=== PATIENT | female | born 1935 | race Caucasian/White ===

== ENCOUNTER 2016-07-07 16:35 | Inpatient (IN) | payer MEDICARE ==
[2016-07-07] MEDS ORDERED: SODIUM CHLORIDE 0.9% 1,000 ML IV STA ×4 (16:58→18:07)
[2016-07-07 17:23] LABS: Basophils # (A) 0.1 k/uL (0-0.2); Basophils % (A) 0 %; CH 25.8; CHCM 25.3; Eosinophils # (A) 0.1 k/uL (0-0.7); Eosinophils % (A) 0 %; HCT 40.5 % (34.0-46.0); HDW 2.34; HGB 10.8 gm/dL (11.4-16.0); Hypochromasia Marked; Luc # (Auto) 0.09; Luc % (Auto) 1; Lymphocytes # (A) 1.3 k/uL (1.0-4.8); Lymphocytes % (A) 7 %; MCH 27.2 pg (25.0-35.0); MCHC 26.6 g/dL (31.0-37.0); MCV 102.4 fL (80.0-100.0); Macrocytosis Slight; Mean Platelet Volume 7.6; Monocytes # (A) 0.8 k/uL (0-1.0); Monocytes % (A) 4 %; Neutrophils # (A) 15.4 k/uL (1.3-7.7); Neutrophils % (A) 87 %; RBC 3.95 m/uL (3.80-5.40); RDW 13.9 % (11.5-15.5); WBC 17.8 k/uL (3.8-10.6); WBC (Perox) 18.49
--- NOTE | 2016-07-07 17:31 | ED ---
Nausea/Vomiting/Diarrhea HPI - General Chief complaint: Nausea/Vomiting/Diarrhea Stated complaint: Vomiting Time Seen by Provider: 07/07/16 16:35 Source: patient, family, EMS, RN notes reviewed Mode of arrival: EMS Limitations: no limitations - History of Present Illness Initial comments: This is a 81-year-old female was brought in by EMS for evaluation of weakness with nausea and vomiting. Nose has gone on for last couple days with weakness and also urinary frequency. She also have a very high blood sugar greater than 600. She denies any abdominal pain she was throwing up she was given some red material per the she did vomit red colored material after arrival in the emergency department. She denies any focal weakness is generalized weakness no headaches no diarrhea reported. MD complaint: nausea, vomiting, other - Related Data Home Medications Medication Instructions Recorded Confirmed Insulin Aspart [NovoLOG] 1 units SQ ACHS PRN 09/27/14 07/07/16 Insulin Glargine [Lantus] 12 unit SQ HS 09/27/14 07/07/16 Multivitamin/Iron/Folic Acid 1 tab PO DAILY 09/27/14 07/07/16 [Centrum Complete Multivit Tab] HYDROcodone/APAP 5-325MG [[place] 1 tab PO Q6HR PRN 07/24/15 07/07/16 5-325] Diphenox-Atrop 2.5-0.025 mg 1 tab PO QID PRN 07/07/16 07/07/16 [Lomotil] Levothyroxine Sodium [Synthroid] 150 mcg PO DAILY 07/07/16 07/07/16 Sertraline HCl [Zoloft] 25 mg PO DAILY 07/07/16 07/07/16 levETIRAcetam [Keppra] 500 mg PO BID 07/07/16 07/07/16 metFORMIN HCL [Glucophage] 500 mg PO BID 07/07/16 07/07/16 Allergies Allergy/AdvReac Type Severity Reaction Status Date / Time sulfamethoxazole Allergy Rash/Hives Verified 07/07/16 17:35 [From Bactrim] trimethoprim [From Bactrim] Allergy Rash/Hives Verified 07/07/16 17:35 Review of Systems ROS Statement: Those systems with pertinent positive or pertinent negative responses have been documented in the HPI. ROS Other: All systems not noted in ROS Statement are negative. Past Medical History Past Medical History: Cancer, Diabetes Mellitus, Osteoarthritis (OA), Renal Disease, Thyroid Disorder, Vascular Disorder Additional Past Medical History / Comment(s): 09/27/14 Pt presented to [facility] ER via EMS. Pt's woke to find the pt having loud breathing that sounded like she was snoring but at the same time she was moving her arm back and forth with a. jerking novement. He attempted to wake hr from sleep but was not able to. Whe pt stopped moving she was not responsive-she gradually regained consciousness but was still confused and unable to speak. coherently. Over the following 15-20 minutes she became able to speak clearly. Other HX: IDDM, colon cancer with surgery and chemo/radiation txs, skin cancer, 2009 2 vertebral fxs, back pain,. arthiritis, frequent diarrhea, hypothyroidism, diverticulosis. History of Any Multi-Drug Resistant Organisms: None Reported Past Surgical History: Bowel Resection, Tonsillectomy, Tubal Ligation Additional Past Surgical History / Comment(s): 1997 or 1998 low anterior rectosigmoid resection, colonoscopies, D&C Past Anesthesia/Blood Transfusion Reactions: Motion Sickness Additional Past Anesthesia/Blood Transfusion Reaction / Comment(s): Pt's believes she had a blood transfusion during colon surgery without reaction. Past Psychological History: No Psychological Hx Reported Additional Psychological History / Comment(s): Pt resides with her spouse. She is independent with her ADLs. She uses either a walker or cane with ambulating. She states she can drive. Smoking Status: Never smoker Past Alcohol Use History: None Reported Past Drug Use History: None Reported - Past Family History Father Family Medical History: Diabetes Mellitus Mother Family Medical History: CVA/TIA, Myocardial Infarction ([place]) Brother(s) Family Medical History: Cancer (Lung) Sister(s) Family Medical History: No Reported History (Hypothyroidism) General Exam - General Exam Comments Initial Comments: This a well developed well-nourished awake but somewhat lethargic female Limitations: no limitations General appearance: alert, in no apparent distress Head exam: Present: atraumatic, normocephalic, normal inspection Eye exam: Present: normal appearance, PERRL, EOMI. Absent: scleral icterus, conjunctival injection, periorbital swelling ENT exam: Present: mucous membranes dry Neck exam: Present: normal inspection. Absent: tenderness, meningismus, lymphadenopathy Respiratory exam: Present: normal lung sounds bilaterally. Absent: respiratory distress, wheezes, rales, rhonchi, stridor Cardiovascular Exam: Present: normal rhythm, tachycardia, normal heart sounds. Absent: systolic murmur, diastolic murmur, rubs, gallop, clicks GI/Abdominal exam: Present: soft, normal bowel sounds. Absent: distended, tenderness, guarding, rebound, rigid Rectal exam: Present: normal inspection, normal rectal tone. Absent: heme (-) stool Extremities exam: Present: normal inspection, full ROM, normal capillary refill. Absent: tenderness, pedal edema, joint swelling, calf tenderness Back exam: Present: normal inspection Neurological exam: Present: alert, oriented X3, CN II-XII intact Psychiatric exam: Present: normal affect, normal mood Skin exam: Present: warm, dry, intact, normal color. Absent: rash Course Vital Signs 07/07/16 07/07/16 07/07/16 16:47 16:51 17:21 Temperature 97.6 F Pulse Rate 107 H 109 H 107 H Respiratory 18 18 18 Rate Blood Pressure 117/57 109/53 115/57 O2 Sat by Pulse 97 96 99 Oximetry 07/07/16 07/07/16 17:51 18:21 Temperature Pulse Rate 104 H 104 H Respiratory 18 18 Rate Blood Pressure 109/53 122/56 O2 Sat by Pulse 100 100 Oximetry - Reevaluation(s) Reevaluation #1: 07/07/16 19:35 I did discuss the findings with the patient she will be admitted there was noted small amount of pink blood passed per vagina I did do a rectal exam which showed no evidence of any fissures hemorrhoids or blood. Medical Decision Making - Lab Data Result diagrams: 07/07/16 17:00 07/07/16 17:00 Lab Results 07/07/16 07/07/16 07/07/16 Range/Units 17:00 17:00 17:00 WBC 17.8 H (3.8-10.6) k/uL RBC 3.95 (3.80-5.40) m/uL Hgb 10.8 L (11.4-16.0) gm/dL Hct 40.5 (34.0-46.0) % MCV 102.4 H (80.0-100.0) fL MCH 27.2 (25.0-35.0) pg MCHC 26.6 L (31.0-37.0) g/dL RDW 13.9 (11.5-15.5) % Plt Count 281 (150-450) k/uL Neutrophils % 87 % Lymphocytes % 7 % Monocytes % 4 % Eosinophils % 0 % Basophils % 0 % Neutrophils # 15.4 H (1.3-7.7) k/uL Lymphocytes # 1.3 (1.0-4.8) k/uL Monocytes # 0.8 (0-1.0) k/uL Eosinophils # 0.1 (0-0.7) k/uL Basophils # 0.1 (0-0.2) k/uL Manual Slide Review Performed Toxic Granulation Present Hypochromasia Marked Poikilocytosis (manual Present Macrocytosis Slight Sodium 136 L (137-145) mmol/L Potassium 5.6 H (3.5-5.1) mmol/L Chloride 96 L (98-107) mmol/L Carbon Dioxide 6 L* (22-30) mmol/L Anion Gap 34 mmol/L BUN 21 H (7-17) mg/dL Creatinine 1.17 H (0.52-1.04) mg/dL Est GFR (MDRD) Af Amer 54 (>60 ml/min/1.73 sqM) Est GFR (MDRD) Non-Af 45 (>60 ml/min/1.73 sqM) Glucose 807 H* (74-99) mg/dL POC Glucose (mg/dL) (75-99) mg/dL POC Glu [employer] Executive ID Calcium 9.3 (8.4-10.2) mg/dL Magnesium 1.6 (1.6-2.3) mg/dL Total Bilirubin 0.7 (0.2-1.3) mg/dL AST 19 (14-36) U/L ALT 27 (9-52) U/L Alkaline Phosphatase 74 (38-126) U/L Total Creatine Kinase 66 (30-135) U/L CK-MB (CK-2) 1.8 (0.0-2.4) ng/mL CK-MB (CK-2) Rel Index 2.7 Troponin I 0.019 (0.000-0.034) ng/mL Total Protein 6.4 (6.3-8.2) g/dL Albumin 4.2 (3.5-5.0) g/dL Amylase 82 (30-110) U/L Lipase 23 (23-300) U/L Urine Color Urine Appearance (Clear) Urine pH (5.0-8.0) Ur Specific [place] (1.001-1.035) Urine Protein (Negative) Urine Glucose (UA) (Negative) Urine Ketones (Negative) Urine Blood (Negative) Urine Nitrite (Negative) Urine Bilirubin (Negative) Urine Urobilinogen (<2.0) mg/dL Ur Leukocyte Esterase (Negative) Gastric Occult Blood (Negative) Stool Occult Blood (Negative) Acetone, Qual (Negative) 07/07/16 07/07/16 07/07/16 Range/Units 17:00 17:21 17:34 WBC (3.8-10.6) k/uL RBC (3.80-5.40) m/uL Hgb (11.4-16.0) gm/dL Hct (34.0-46.0) % MCV (80.0-100.0) fL MCH (25.0-35.0) pg MCHC (31.0-37.0) g/dL RDW (11.5-15.5) % Plt Count (150-450) k/uL Neutrophils % % Lymphocytes % % Monocytes % % Eosinophils % % Basophils % % Neutrophils # (1.3-7.7) k/uL Lymphocytes # (1.0-4.8) k/uL Monocytes # (0-1.0) k/uL Eosinophils # (0-0.7) k/uL Basophils # (0-0.2) k/uL Manual Slide Review Toxic Granulation Hypochromasia Poikilocytosis (manual Macrocytosis Sodium (137-145) mmol/L Potassium (3.5-5.1) mmol/L Chloride (98-107) mmol/L Carbon Dioxide (22-30) mmol/L Anion Gap mmol/L BUN (7-17) mg/dL Creatinine (0.52-1.04) mg/dL Est GFR (MDRD) Af Amer (>60 ml/min/1.73 sqM) Est GFR (MDRD) Non-Af (>60 ml/min/1.73 sqM) Glucose (74-99) mg/dL POC Glucose (mg/dL) (75-99) mg/dL POC Glu [employer] Executive ID Calcium (8.4-10.2) mg/dL Magnesium (1.6-2.3) mg/dL Total Bilirubin (0.2-1.3) mg/dL AST (14-36) U/L ALT (9-52) U/L Alkaline Phosphatase (38-126) U/L Total Creatine Kinase (30-135) U/L CK-MB (CK-2) (0.0-2.4) ng/mL CK-MB (CK-2) Rel Index Troponin I (0.000-0.034) ng/mL Total Protein (6.3-8.2) g/dL Albumin (3.5-5.0) g/dL Amylase (30-110) U/L Lipase (23-300) U/L Urine Color Light Yellow Urine Appearance Clear (Clear) Urine pH 5.0 (5.0-8.0) Ur Specific [place] 1.011 (1.001-1.035) Urine Protein Trace H (Negative) Urine Glucose (UA) 4+ H (Negative) Urine Ketones 4+ H (Negative) Urine Blood Negative (Negative) Urine Nitrite Negative (Negative) Urine Bilirubin Negative (Negative) Urine Urobilinogen <2.0 (<2.0) mg/dL Ur Leukocyte Esterase Negative (Negative) Gastric Occult Blood Positive (Negative) Stool Occult Blood (Negative) Acetone, Qual Positive (Negative) 07/07/16 07/07/16 Range/Units 17:34 19:25 WBC (3.8-10.6) k/uL RBC (3.80-5.40) m/uL Hgb (11.4-16.0) gm/dL Hct (34.0-46.0) % MCV (80.0-100.0) fL MCH (25.0-35.0) pg MCHC (31.0-37.0) g/dL RDW (11.5-15.5) % Plt Count (150-450) k/uL Neutrophils % % Lymphocytes % % Monocytes % % Eosinophils % % Basophils % % Neutrophils # (1.3-7.7) k/uL Lymphocytes # (1.0-4.8) k/uL Monocytes # (0-1.0) k/uL Eosinophils # (0-0.7) k/uL Basophils # (0-0.2) k/uL Manual Slide Review Toxic Granulation Hypochromasia Poikilocytosis (manual Macrocytosis Sodium (137-145) mmol/L Potassium (3.5-5.1) mmol/L Chloride (98-107) mmol/L Carbon Dioxide (22-30) mmol/L Anion Gap mmol/L BUN (7-17) mg/dL Creatinine (0.52-1.04) mg/dL Est GFR (MDRD) Af Amer (>60 ml/min/1.73 sqM) Est GFR (MDRD) Non-Af (>60 ml/min/1.73 sqM) Glucose (74-99) mg/dL POC Glucose (mg/dL) >600 H (75-99) mg/dL POC Glu [employer] Executive ID Wandy Perez Calcium (8.4-10.2) mg/dL Magnesium (1.6-2.3) mg/dL Total Bilirubin (0.2-1.3) mg/dL AST (14-36) U/L ALT (9-52) U/L Alkaline Phosphatase (38-126) U/L Total Creatine Kinase (30-135) U/L CK-MB (CK-2) (0.0-2.4) ng/mL CK-MB (CK-2) Rel Index Troponin I (0.000-0.034) ng/mL Total Protein (6.3-8.2) g/dL Albumin (3.5-5.0) g/dL Amylase (30-110) U/L Lipase (23-300) U/L Urine Color Urine Appearance (Clear) Urine pH (5.0-8.0) Ur Specific [place] (1.001-1.035) Urine Protein (Negative) Urine Glucose (UA) (Negative) Urine Ketones (Negative) Urine Blood (Negative) Urine Nitrite (Negative) Urine Bilirubin (Negative) Urine Urobilinogen (<2.0) mg/dL Ur Leukocyte Esterase (Negative) Gastric Occult Blood (Negative) Stool Occult Blood Negative (Negative) Acetone, Qual (Negative) - EKG Data -: EKG Interpreted by Tn EKG shows normal: sinus rhythm (Sinus tachycardia of 108 QRS 138 QT T/QTC of 3/ 509 VA interval 168 evidence a left bundle-branch block.) Disposition Clinical Impression: Diabetic ketoacidosis, Hyperosmolarity due to secondary diabetes, Pneumonia, Dehydration, Fever Disposition: ADMITTED IP TO THIS HOSP Condition: Stable Referrals: Manoj Turpin MD [Primary Care Provider] - 1-2 days
[2016-07-07 17:35] LABS: Calcium 9.3 mg/dL (8.4-10.2); Magnesium 1.6 mg/dL (1.6-2.3); Potassium 5.6 mmol/L (3.5-5.1); Total Bilirubin 0.7 mg/dL (0.2-1.3); Total Protein 6.4 g/dL (6.3-8.2)
[2016-07-07 17:46] LABS: Appearance,Urine Clear (Clear); Bilirubin,Urine Negative (Negative); Glucose,Urine (UA) 4+ (Negative); Leukocyte Esterase,Urine Negative (Negative); Nitrite,Urine Negative (Negative); Protein,Urine Trace (Negative); Specific Gravity,Urine 1.011 (1.001-1.035); UA Billing (MACRO vs. MICRO) CHEM; Urobilinogen,Urine <2.0 mg/dL (<2.0)
[2016-07-07 17:51] LABS: Manual Review Performed; Toxic Granulation Present
[2016-07-07 17:53] LABS: Ketones,Urine 4+ (Negative)
[2016-07-07 18:00] LABS: Creatine Kinase MB 1.8 ng/mL (0.0-2.4); Troponin I 0.019 ng/mL (0.000-0.034)
[2016-07-07] MEDS ORDERED: MAGNESIUM SULFATE-D5W PMX 1 GM in DEXTROSE/WATER 1 100ML.BAG IVPB ONE (18:15)
--- NOTE | 2016-07-07 18:17 | XR ---
EXAMINATION TYPE: XR chest 2V DATE OF EXAM: 07/07/2016 6:05 PM COMPARISON: 09/27/2014 HISTORY: 81 year-old female nausea and pain TECHNIQUE: AP and lateral views FINDINGS: Heart is upper limits of normal in size. Mild diffuse interstitial prominence and hyperinflation. [place] ateral healed rib fracture deformities are new from 2014. There is some increased opacity at the medi al left upper lobe. No pleural effusion. IMPRESSION: 1. COPD with a number of healed rib fracture deformities, new as compared to 2015. 2. New focal medial left upper lobe opacity. Correlate for any symptoms of pneumonia. Follow-up after any potential treatment to exclude underlying neoplasm.
--- NOTE | 2016-07-07 18:20 | XR ---
EXAMINATION TYPE: XR KUB DATE OF EXAM: 07/07/2016 6:05 PM CLINICAL DATA: 81-year-old female complaining of nausea and pain, PHH COMPARISON: CT 07/24/2015 FINDINGS: Supine imaging limited for assessment of free air. No dilated bowel loops seen. No significant stool burden. Vascular calcifications pelvis. Surgical clips and staple line within the pelvis. 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 Degenerative changes of hips. IMPRESSION: Nonobstructive bowel gas pattern. No significant stool burden. Colonic resection changes in the pelvi s.
[2016-07-07] MEDS ORDERED: LEVOFLOXACIN 750MG-D5W PMX 750 MG in DEXTROSE/WATER 1 150ML.BAG IVPB STA (18:59)
[2016-07-07 19:27] LABS: Glucose,Whole Blood >600 mg/dL (75-99)
[2016-07-07] MEDS ORDERED: SODIUM CHLORIDE 0.9% 1,000 ML IV SCH (19:30)
[2016-07-07] MEDS ORDERED: HYDROcodone/APAP 5-325MG 1 EACH TAB PO PRN (19:34)
[2016-07-07] MEDS ORDERED: INSULIN REGULAR 100 UNIT in SODIUM CHLORIDE 0.9% 100 ML IV ONE (19:45)
--- NOTE | 2016-07-07 19:58 | ED ---
Medical Decision Making - Lab Data Result diagrams: 07/07/16 17:00 07/07/16 17:00 Lab Results 07/07/16 07/07/16 07/07/16 Range/Units 17:00 17:00 17:00 WBC 17.8 H (3.8-10.6) k/uL RBC 3.95 (3.80-5.40) m/uL Hgb 10.8 L (11.4-16.0) gm/dL Hct 40.5 (34.0-46.0) % MCV 102.4 H (80.0-100.0) fL MCH 27.2 (25.0-35.0) pg MCHC 26.6 L (31.0-37.0) g/dL RDW 13.9 (11.5-15.5) % Plt Count 281 (150-450) k/uL Neutrophils % 87 % Lymphocytes % 7 % Monocytes % 4 % Eosinophils % 0 % Basophils % 0 % Neutrophils # 15.4 H (1.3-7.7) k/uL Lymphocytes # 1.3 (1.0-4.8) k/uL Monocytes # 0.8 (0-1.0) k/uL Eosinophils # 0.1 (0-0.7) k/uL Basophils # 0.1 (0-0.2) k/uL Manual Slide Review Performed Toxic Granulation Present Hypochromasia Marked Poikilocytosis (manual Present Macrocytosis Slight Sodium 136 L (137-145) mmol/L Potassium 5.6 H (3.5-5.1) mmol/L Chloride 96 L (98-107) mmol/L Carbon Dioxide 6 L* (22-30) mmol/L Anion Gap 34 mmol/L BUN 21 H (7-17) mg/dL Creatinine 1.17 H (0.52-1.04) mg/dL Est GFR (MDRD) Af Amer 54 (>60 ml/min/1.73 sqM) Est GFR (MDRD) Non-Af 45 (>60 ml/min/1.73 sqM) Glucose 807 H* (74-99) mg/dL POC Glucose (mg/dL) (75-99) mg/dL POC Glu [employer]er ID Calcium 9.3 (8.4-10.2) mg/dL Magnesium 1.6 (1.6-2.3) mg/dL Total Bilirubin 0.7 (0.2-1.3) mg/dL AST 19 (14-36) U/L ALT 27 (9-52) U/L Alkaline Phosphatase 74 (38-126) U/L Total Creatine Kinase 66 (30-135) U/L CK-MB (CK-2) 1.8 (0.0-2.4) ng/mL CK-MB (CK-2) Rel Index 2.7 Troponin I 0.019 (0.000-0.034) ng/mL Total Protein 6.4 (6.3-8.2) g/dL Albumin 4.2 (3.5-5.0) g/dL Amylase 82 (30-110) U/L Lipase 23 (23-300) U/L Urine Color Urine Appearance (Clear) Urine pH (5.0-8.0) Ur Specific [place] (1.001-1.035) Urine Protein (Negative) Urine Glucose (UA) (Negative) Urine Ketones (Negative) Urine Blood (Negative) Urine Nitrite (Negative) Urine Bilirubin (Negative) Urine Urobilinogen (<2.0) mg/dL Ur Leukocyte Esterase (Negative) Gastric Occult Blood (Negative) Stool Occult Blood (Negative) Acetone, Qual (Negative) 07/07/16 07/07/16 07/07/16 Range/Units 17:00 17:21 17:34 WBC (3.8-10.6) k/uL RBC (3.80-5.40) m/uL Hgb (11.4-16.0) gm/dL Hct (34.0-46.0) % MCV (80.0-100.0) fL MCH (25.0-35.0) pg MCHC (31.0-37.0) g/dL RDW (11.5-15.5) % Plt Count (150-450) k/uL Neutrophils % % Lymphocytes % % Monocytes % % Eosinophils % % Basophils % % Neutrophils # (1.3-7.7) k/uL Lymphocytes # (1.0-4.8) k/uL Monocytes # (0-1.0) k/uL Eosinophils # (0-0.7) k/uL Basophils # (0-0.2) k/uL Manual Slide Review Toxic Granulation Hypochromasia Poikilocytosis (manual Macrocytosis Sodium (137-145) mmol/L Potassium (3.5-5.1) mmol/L Chloride (98-107) mmol/L Carbon Dioxide (22-30) mmol/L Anion Gap mmol/L BUN (7-17) mg/dL Creatinine (0.52-1.04) mg/dL Est GFR (MDRD) Af Amer (>60 ml/min/1.73 sqM) Est GFR (MDRD) Non-Af (>60 ml/min/1.73 sqM) Glucose (74-99) mg/dL POC Glucose (mg/dL) (75-99) mg/dL POC Glu [employer] As[employer]er ID Calcium (8.4-10.2) mg/dL Magnesium (1.6-2.3) mg/dL Total Bilirubin (0.2-1.3) mg/dL AST (14-36) U/L ALT (9-52) U/L Alkaline Phosphatase (38-126) U/L Total Creatine Kinase (30-135) U/L CK-MB (CK-2) (0.0-2.4) ng/mL CK-MB (CK-2) Rel Index Troponin I (0.000-0.034) ng/mL Total Protein (6.3-8.2) g/dL Albumin (3.5-5.0) g/dL Amylase (30-110) U/L Lipase (23-300) U/L Urine Color Light Yellow Urine Appearance Clear (Clear) Urine pH 5.0 (5.0-8.0) Ur Specific [place] 1.011 (1.001-1.035) Urine Protein Trace H (Negative) Urine Glucose (UA) 4+ H (Negative) Urine Ketones 4+ H (Negative) Urine Blood Negative (Negative) Urine Nitrite Negative (Negative) Urine Bilirubin Negative (Negative) Urine Urobilinogen <2.0 (<2.0) mg/dL Ur Leukocyte Esterase Negative (Negative) Gastric Occult Blood Positive (Negative) Stool Occult Blood (Negative) Acetone, Qual Positive (Negative) 07/07/16 07/07/16 Range/Units 17:34 19:25 WBC (3.8-10.6) k/uL RBC (3.80-5.40) m/uL Hgb (11.4-16.0) gm/dL Hct (34.0-46.0) % MCV (80.0-100.0) fL MCH (25.0-35.0) pg MCHC (31.0-37.0) g/dL RDW (11.5-15.5) % Plt Count (150-450) k/uL Neutrophils % % Lymphocytes % % Monocytes % % Eosinophils % % Basophils % % Neutrophils # (1.3-7.7) k/uL Lymphocytes # (1.0-4.8) k/uL Monocytes # (0-1.0) k/uL Eosinophils # (0-0.7) k/uL Basophils # (0-0.2) k/uL Manual Slide Review Toxic Granulation Hypochromasia Poikilocytosis (manual Macrocytosis Sodium (137-145) mmol/L Potassium (3.5-5.1) mmol/L Chloride (98-107) mmol/L Carbon Dioxide (22-30) mmol/L Anion Gap mmol/L BUN (7-17) mg/dL Creatinine (0.52-1.04) mg/dL Est GFR (MDRD) Af Amer (>60 ml/min/1.73 sqM) Est GFR (MDRD) Non-Af (>60 ml/min/1.73 sqM) Glucose (74-99) mg/dL POC Glucose (mg/dL) >600 H (75-99) mg/dL POC Glu [employer] As[employer]er ID Wandy Perez Calcium (8.4-10.2) mg/dL Magnesium (1.6-2.3) mg/dL Total Bilirubin (0.2-1.3) mg/dL AST (14-36) U/L ALT (9-52) U/L Alkaline Phosphatase (38-126) U/L Total Creatine Kinase (30-135) U/L CK-MB (CK-2) (0.0-2.4) ng/mL CK-MB (CK-2) Rel Index Troponin I (0.000-0.034) ng/mL Total Protein (6.3-8.2) g/dL Albumin (3.5-5.0) g/dL Amylase (30-110) U/L Lipase (23-300) U/L Urine Color Urine Appearance (Clear) Urine pH (5.0-8.0) Ur Specific [place] (1.001-1.035) Urine Protein (Negative) Urine Glucose (UA) (Negative) Urine Ketones (Negative) Urine Blood (Negative) Urine Nitrite (Negative) Urine Bilirubin (Negative) Urine Urobilinogen (<2.0) mg/dL Ur Leukocyte Esterase (Negative) Gastric Occult Blood (Negative) Stool Occult Blood Negative (Negative) Acetone, Qual (Negative) Critical Care Time Critical Care Time: Yes Critical Care Time: 37 minutes of critical care time which includes initial monitoring the EMS run and discussed with paramedics. History physical lab and x-rays and the patient discussed with patient's family reevaluation patient several occasions. Discussion with the admitting physician documentation the above admission orders. Disposition Clinical Impression: Diabetic ketoacidosis, Hyperosmolarity due to secondary diabetes, Pneumonia, Dehydration, Fever Disposition: ADMITTED IP TO THIS [facility] Condition: Stable
[2016-07-07 20:39] LABS: Glucose,Whole Blood >600 mg/dL (75-99)
[2016-07-07 21:24] LABS: Glucose,Whole Blood >600 mg/dL (75-99)
[2016-07-07 21:34] LABS: Anion Gap 31 mmol/L; Blood Urea Nitrogen 19 mg/dL (7-17); Chloride 105 mmol/L (98-107); Non-African American GFR(MDRD) 48 (>60 ml/min/1.73 sqM); Phosphorous 7.1 mg/dL (2.5-4.5); Potassium 5.7 mmol/L (3.5-5.1); Sodium 141 mmol/L (137-145)
[2016-07-07 21:43] LABS: Carbon Dioxide <5 mmol/L (22-30); Glucose 699 mg/dL (74-99)
[2016-07-07] MEDS: levETIRAcetam 500 MG TAB PO SCH (22:29)
[2016-07-07] MEDS: SODIUM CHLORIDE 0.9% 1,000 ML IV SCH (22:31)
[2016-07-07] MEDS: metFORMIN 500 MG TAB PO SCH (22:31)
[2016-07-07 22:38] LABS: Glucose,Whole Blood 562 mg/dL (75-99)
[2016-07-07 23:36] LABS: Glucose,Whole Blood 521 mg/dL (75-99)
[2016-07-08 00:30] LABS: Anion Gap 28 mmol/L; Blood Urea Nitrogen 19 mg/dL (7-17); Chloride 108 mmol/L (98-107); Non-African American GFR(MDRD) 53 (>60 ml/min/1.73 sqM); Phosphorous 5.3 mg/dL (2.5-4.5); Sodium 143 mmol/L (137-145)
[2016-07-08 00:32] LABS: Glucose,Whole Blood 447 mg/dL (75-99)
[2016-07-08 00:34] LABS: Carbon Dioxide 7 mmol/L (22-30); Glucose 525 mg/dL (74-99)
[2016-07-08 01:35] LABS: Glucose,Whole Blood 356 mg/dL (75-99)
[2016-07-08 02:42] LABS: Glucose,Whole Blood 310 mg/dL (75-99)
[2016-07-08] MEDS: SODIUM CHLORIDE 0.9% 1,000 ML IV SCH (03:12)
[2016-07-08 04:26] LABS: Glucose,Whole Blood 248 mg/dL (75-99)
[2016-07-08] MEDS: DEXTROSE 5%-0.45% NACL 1,000 ML IV SCH ×2 (04:31→11:57)
[2016-07-08 05:07] LABS: Glucose,Whole Blood 244 mg/dL (75-99)
[2016-07-08 06:04] LABS: Glucose,Whole Blood 186 mg/dL (75-99)
[2016-07-08] MEDS: LEVOTHYROXINE 75 MCG TAB PO SCH ×2 (06:49→07:27)
[2016-07-08 07:07] LABS: Glucose,Whole Blood 185 mg/dL (75-99)
[2016-07-08 07:21] LABS: Glucose,Whole Blood >600 mg/dL (75-99)
[2016-07-08] MEDS ORDERED: INSULIN ASPART 1 UNIT SQ PRN (07:48)
[2016-07-08 08:15] LABS: Anion Gap 18 mmol/L; Blood Urea Nitrogen 20 mg/dL (7-17); Calcium 8.4 mg/dL (8.4-10.2); Carbon Dioxide 13 mmol/L (22-30); Chloride 112 mmol/L (98-107); Glucose 252 mg/dL (74-99); Non-African American GFR(MDRD) >60 (>60 ml/min/1.73 sqM); Potassium 4.2 mmol/L (3.5-5.1); Sodium 143 mmol/L (137-145)
[2016-07-08] MEDS: MULTIVITAMINS, THERA 1 EACH TAB PO SCH (08:20)
[2016-07-08] MEDS: levETIRAcetam 500 MG TAB PO SCH ×2 (08:20→21:17)
[2016-07-08] MEDS: SERTRALINE 25 MG TAB PO SCH (08:20)
[2016-07-08] MEDS: metFORMIN 500 MG TAB PO SCH ×2 (08:20→21:17)
[2016-07-08 08:31] LABS: Glucose,Whole Blood 153 mg/dL (75-99)
[2016-07-08 08:32] LABS: CH 26.6; CHCM 28.4; HCT 34.3 % (34.0-46.0); HDW 2.48; Hypochromasia Marked; MCH 27.4 pg (25.0-35.0); MCHC 29.2 g/dL (31.0-37.0); Mean Platelet Volume 7.8; RBC 3.66 m/uL (3.80-5.40); RDW 14.5 % (11.5-15.5); WBC 14.3 k/uL (3.8-10.6)
[2016-07-08 08:36] LABS: MCV 93.9 fL (80.0-100.0)
[2016-07-08 09:11] LABS: Glucose,Whole Blood 139 mg/dL (75-99)
[2016-07-08] MEDS ORDERED: Potassium Replacement Protocol 1 EACH MISC MISCELLANE PRN (09:14)
[2016-07-08] MEDS ORDERED: Magnesium Replacement Protocol 1 EACH MISC MISCELLANE PRN (09:14)
[2016-07-08] MEDS ORDERED: INSULIN REGULAR 100 UNIT in SODIUM CHLORIDE 0.9% 100 ML IV SCH (09:15)
[2016-07-08 09:46] LABS: Anion Gap 9 mmol/L; Blood Urea Nitrogen 19 mg/dL (7-17); Calcium 8.1 mg/dL (8.4-10.2); Carbon Dioxide 21 mmol/L (22-30); Chloride 111 mmol/L (98-107); Glucose 146 mg/dL (74-99); Non-African American GFR(MDRD) >60 (>60 ml/min/1.73 sqM); Potassium 3.9 mmol/L (3.5-5.1); Sodium 141 mmol/L (137-145)
[2016-07-08 09:58] LABS: CHCM 30.5; HDW 2.56; HGB 9.4 gm/dL (11.4-16.0); Hypochromasia Moderate; MCH 27.7 pg (25.0-35.0); MCHC 31.3 g/dL (31.0-37.0); Mean Platelet Volume 7.6; RBC 3.38 m/uL (3.80-5.40); RDW 14.6 % (11.5-15.5); WBC 12.9 k/uL (3.8-10.6)
[2016-07-08 10:01] LABS: Glucose,Whole Blood 142 mg/dL (75-99)
[2016-07-08 10:22] LABS: MCV 88.7 fL (80.0-100.0)
[2016-07-08 10:43] LABS: Hemoglobin A1C 9.2 % (4.2-6.1)
[2016-07-08 11:07] LABS: Glucose,Whole Blood 148 mg/dL (75-99)
[2016-07-08 12:01] LABS: Glucose,Whole Blood 171 mg/dL (75-99)
[2016-07-08] MEDS: INSULIN LISPRO (humaLOG) 300 UNIT/3 ML VIAL SQ SCH ×3 (13:13→21:42)
[2016-07-08 13:20] VITALS: BMI 21.4
[2016-07-08 13:23] LABS: Glucose,Whole Blood 195 mg/dL (75-99)
[2016-07-08] MEDS: ENOXAPARIN 40 MG/0.4 ML SYRINGE SQ SCH (15:34)
[2016-07-08 16:47] LABS: Glucose,Whole Blood 366 mg/dL (75-99)
[2016-07-08] MEDS ORDERED: INSULIN GLARGINE 100 UNIT/ML 10 ML VIAL SQ SCH ×2 (21:00)
[2016-07-08] MEDS: LEVOFLOXACIN 750MG-D5W PMX 750 MG in DEXTROSE/WATER 1 150ML.BAG IVPB SCH (21:16)
--- NOTE | 2016-07-08 21:20 | HP ---
DATE OF ADMISSION: 07/07/2016 PRESENTING COMPLAINT: Nausea, vomiting. HISTORY OF PRESENTING COMPLAINT: This is a very pleasant 81-year-old patient of Dr. Turpin. The patient's chronic stable medical conditions include osteoarthritis, diverticulosis, hypothyroid. Patient presented after ( ) patient normally has 4 or 5 bowel movements a day. Patient presented with a one day of increasing loose bowel movements, nausea, vomiting, denied any fever, tired, rundown. When presented to the ER was found to have a sugar of 525 and bicarb of 7. Patient was admitted with diabetic ketoacidosis, put on insulin drip. Patient's daughter at the bedside. Sugars started to come down, but patient does not have much of an appetite. Denies any fevers. No abdominal pain. REVIEW OF SYSTEMS: CONSTITUTIONAL: Weak and tired. HEENT: None. RESPIRATORY: None. CARDIOVASCULAR: None. GASTROINTESTINAL: As above. GENITOURINARY: Urine incontinence. MUSCULOSKELETAL: Pain in the joints. Dermatologic: None. HEMATOLOGIC: None. LYMPHATICS: None. PSYCHIATRY: None. NEUROLOGICAL: None. Past medical history of diabetes, osteoarthritis, hypothyroid, colon cancer treated with surgery, chemo and radiation, diverticulosis. PAST SURGICAL HISTORY: Bowel resection, tonsillectomy. Tubal ligation. Low anterior rectosigmoid resection. SOCIAL HISTORY: . Does not smoke or drink alcohol. Uses a cane and a walker. FAMILY HISTORY: Diabetes. HOME MEDICATIONS: 1. Synthroid 150 mcg p.o. daily. 2. Keppra 5 mg p.o. b.i.d. 3. Glucophage 500 mg p.o. b.i.d. 4. Zoloft 25 mg p.o. daily. 5. Lomotil 1 tablet p.o. q.i.d. p.r.n. 6. Centrum complete 1 tablet p.o. daily. 7. Lantus 20 units subcu q.h.s. 8. NovoLog 1 unit subcutaneous q.h.s. p.r.n. 9. [place] 5 1 tablets q.6 p.r.n. ALLERGIES: BACTRIM. PHYSICAL EXAMINATION: Vital signs on presentation: Temperature 97.6, pulse 70, respiration 18, blood pressure 117/57, pulse ox 97% on room air. GENERAL APPEARANCE: Average build, lying in bed, tired -appearing. EYES: Pupils equal. Conjunctivae normal. HEENT: Oral cavity dry mucous membrane. NECK: JVD not raised. Mass not palpable. RESPIRATORY: Effort normal. Lungs are clear. CARDIOVASCULAR: First and second sounds normal. No edema. ABDOMEN: Soft, nontender. Liver and spleen not palpable. LYMPHATIC: No lymph nodes palpable in the neck and axilla. PSYCHIATRY: Alert and oriented x3. Mood and affect normal. NEUROLOGICAL: Pupils equal. Cranial nerves grossly intact. Power and sensation grossly intact. MUSCULOSKELETAL: Evidence of osteoarthritis, especially in the hands and knees. INVESTIGATIONS: Vital signs on presentation: White count 7.8, hemoglobin 10.8. Potassium 5.6. BUN 21, creatinine 1.17, bicarb 6, glucose 807. Serum acetone was positive. ASSESSMENT: 1. Acute gastroenteritis, possibly leading to and precipitating acute diabetic ketoacidosis. 2. Acute diabetic ketoacidosis. 3. Hyperkalemia secondary to diabetic ketoacidosis 4. Primary osteoarthritis in multiple joints, bilateral. 5. Diverticulosis. 6. Depression not otherwise specified. 7. Chronic diarrhea. PLAN: Patient put on insulin drip. Home medications will be resumed. We will give Lovenox for DVT prophylaxis. Care was discussed with the patient and her daughter at the bedside. No indication for antibiotics at the present time. Patient will be given a soft, bland diet. Copy to Dr. Turpin.
[2016-07-08 21:29] LABS: Glucose,Whole Blood 425 mg/dL (75-99)
[2016-07-08 21:29] LABS: Glucose,Whole Blood 387 mg/dL (75-99)
[2016-07-09] MEDS: LEVOTHYROXINE 75 MCG TAB PO SCH (06:41)
[2016-07-09 07:43] LABS: Glucose,Whole Blood 186 mg/dL (75-99)
[2016-07-09] MEDS: SERTRALINE 25 MG TAB PO SCH (08:39)
[2016-07-09] MEDS: levETIRAcetam 500 MG TAB PO SCH ×2 (08:39→21:10)
[2016-07-09] MEDS: ENOXAPARIN 40 MG/0.4 ML SYRINGE SQ SCH (08:39)
[2016-07-09] MEDS: metFORMIN 500 MG TAB PO SCH ×2 (08:39→21:10)
[2016-07-09] MEDS: INSULIN LISPRO (humaLOG) 300 UNIT/3 ML VIAL SQ SCH ×5 (08:40→21:26)
[2016-07-09 09:05] LABS: Anion Gap 9 mmol/L; Blood Urea Nitrogen 14 mg/dL (7-17); Carbon Dioxide 24 mmol/L (22-30); Chloride 106 mmol/L (98-107); Glucose 175 mg/dL (74-99); Non-African American GFR(MDRD) >60 (>60 ml/min/1.73 sqM); Potassium 3.7 mmol/L (3.5-5.1); Sodium 139 mmol/L (137-145)
[2016-07-09 11:57] LABS: Glucose,Whole Blood 256 mg/dL (75-99)
[2016-07-09] MEDS: MULTIVITAMINS, THERA 1 EACH TAB PO SCH (13:57)
[2016-07-09 17:44] LABS: Glucose,Whole Blood 138 mg/dL (75-99)
--- NOTE | 2016-07-09 19:16 | PN ---
DATE OF SERVICE: 07/09/2016 PRESENTING COMPLAINT: Nausea and vomiting. INTERVAL HISTORY: This is a patient who was found to have acute gastroenteritis and diabetic ketoacidosis. Today the patient is sitting up in bed, family is at the bedside. There is much discussion at the bedside regarding discharge planning. Family wanted to know if patient was being discharged today. All questions regarding discharge were asked and answered by nurse practitioner. Patient is awake, alert, sitting up in bed, family brought some food from home and she seems to be enjoying them. Patient states her blood sugars have been well in control since she has been admitted to the hospital. Review of systems done for constitutional, cardiovascular, GI, pulmonary with relevant findings as above. CURRENT MEDICATIONS: 1. [place] 5/325, 1 tablet q.6 hours. 2. Lovenox 40 mg subcu daily. 3. Lantus 12 units subcu at bedtime. 4. Humalog for sliding scale. 5. Keppra 500 mg p.o. b.i.d. 6. Levofloxacin 750 mg and 150 mL IV piggyback. PHYSICAL EXAMINATION: VITAL SIGNS: temperature 97.5, pulse 77, respiratory rate 19, blood pressure 124/61, oxygen saturation 96% on room air. EYES: Pupils equal. Conjunctivae normal. NECK: JVD not raised. Mass not palpable. LUNGS: Sounds diminished bilaterally. RESPIRATORY: Effort normal. CARDIOVASCULAR: First and second sounds noted. No edema. ABDOMEN: Soft, mildly tender. Liver and spleen not palpable. PSYCHIATRY: Alert and oriented x3. Mood and affect are normal. INVESTIGATIONS: White blood cell count 12.9, hemoglobin 9.4, platelet count 209. Sodium 141, potassium 3.9. BUN 19, blood glucose 146, calcium 8.1 ASSESSMENT: 1. Acute gastroenteritis, possibly leading to and precipitating acute diabetic ketoacidosis, improving. 2. Acute diabetic ketoacidosis, improving. 3. Hyperkalemia secondary to diabetic ketoacidosis, resolved. 4. Primary osteoarthritis, multiple joints, bilateral. 5. Diverticulosis, stable. 6. Depression, not otherwise specified. 7. Chronic diarrhea, improving. PLAN: Insulin drip has been discontinued. Patient is placed on a sliding scale. There are some psychosocial issues within the family unit that must be resolved prior to discharge. The general feeling is that both patient and are becoming progressively more forgetful, hence, patient's blood sugar was not well controlled at home. Notify case management of situation and asked for resources for this difficulty. Maybe perhaps patient needs someone to come into the home. Plan of care was discussed with the son, and the patient at the bedside. Questions were answered. Will continue to monitor closely. Patient was seen and examined by nurse practitioner, Leah Freitas, and all elements of the case discussed with Dr. Mares.
[2016-07-09] MEDS ORDERED: INSULIN GLARGINE 100 UNIT/ML 10 ML VIAL SQ SCH (21:00)
[2016-07-09] MEDS ORDERED: ATORVASTATIN 40 MG TAB PO SCH (21:00)
[2016-07-09] MEDS: LEVOFLOXACIN 750MG-D5W PMX 750 MG in DEXTROSE/WATER 1 150ML.BAG IVPB SCH (21:07)
[2016-07-09 21:27] LABS: Glucose,Whole Blood 141 mg/dL (75-99)
--- NOTE | 2016-07-09 22:09 | PN ---
DATE OF SERVICE: 07/09/2016 PRESENTING COMPLAINT: DKA. ATTENDING NOTE: This patient seen and examined by me earlier today. I reviewed the note of my nurse practitioner, Ms. Freitas, discussed and agreed with her. Patient admitted with DKA, going better, did tolerate some diet, more perky. Family is at the bedside. On examination, afebrile, blood pressure 120/61. LUNGS: Clear. CARDIOVASCULAR: First and second sounds normal. PSYCH: Alert and oriented x3. INVESTIGATIONS: Accu-Cheks are noted. ASSESSMENT: 1. Acute gastroenteritis, improving. 2. Acute diabetic ketoacidosis, better. PLAN: Today will increase the patient's Lantus to 60 units at night and add 4 units with each meal. I talked with the family about carbohydrate counting, spoke to the nurse. Care was discussed with too at the bedside.
[2016-07-10] MEDS: LEVOTHYROXINE 75 MCG TAB PO SCH (06:27)
[2016-07-10 07:09] LABS: Glucose,Whole Blood 188 mg/dL (75-99)
[2016-07-10 08:56] VITALS: BP 146/72; PULSE 64; RESP 16; TEMP 97.2
[2016-07-10] MEDS ORDERED: LISINOPRIL 5 MG TAB PO SCH (09:00)
[2016-07-10] MEDS: levETIRAcetam 500 MG TAB PO SCH (09:17)
[2016-07-10] MEDS: metFORMIN 500 MG TAB PO SCH (09:17)
[2016-07-10] MEDS: SERTRALINE 25 MG TAB PO SCH (09:17)
[2016-07-10] MEDS: INSULIN LISPRO (humaLOG) 300 UNIT/3 ML VIAL SQ SCH ×4 (09:18→13:06)
[2016-07-10] MEDS: ENOXAPARIN 40 MG/0.4 ML SYRINGE SQ SCH (09:18)
[2016-07-10 11:18] LABS: Anion Gap 13 mmol/L; Blood Urea Nitrogen 12 mg/dL (7-17); Calcium 9.2 mg/dL (8.4-10.2); Carbon Dioxide 21 mmol/L (22-30); Chloride 105 mmol/L (98-107); Cholesterol 144 mg/dL (<200); Glucose 289 mg/dL (74-99); HDL Cholesterol 67 mg/dL (40-60); Non-African American GFR(MDRD) >60 (>60 ml/min/1.73 sqM); Potassium 3.7 mmol/L (3.5-5.1); Sodium 139 mmol/L (137-145); Triglycerides 105 mg/dL (<150)
[2016-07-10 12:05] LABS: Glucose,Whole Blood 231 mg/dL (75-99)
[2016-07-10] MEDS: MULTIVITAMINS, THERA 1 EACH TAB PO SCH (13:06)
[2016-07-10] MEDS ORDERED: LEVOFLOXACIN 750 MG TAB PO SCH (20:00)
--- NOTE | 2016-07-11 18:24 | DS ---
DATE OF ADMISSION: 07/07/2016 DATE OF DISCHARGE: 07/10/2016 FINAL DIAGNOSES: 1. Acute gastroenteritis possibly leading to any precipitating acute diabetic ketoacidosis. 2. Acute diabetic ketoacidosis. 3. Hyperkalemia secondary to diabetic ketoacidosis. 4. Primary osteoarthritis, multiple joints, bilateral. 5. Diverticulosis. 6. Depression, not otherwise specified. 7. Chronic diarrhea. 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 HOSPITAL COURSE: This is a patient who is admitted with diabetic ketoacidosis secondary to possible gastroenteritis, diarrhea, nausea and vomiting. On admission, patient's blood sugar was found to be 525, bicarb of 7. Patient was placed on an insulin drip. Blood sugars were checked. Patient received IV fluids. Patient's diet was advanced. Patient's blood sugar normalized such that the insulin drip was no longer necessary. Patient returned to a sliding scale. Today patient was sitting up in the bed. She is tolerating her meals. She is walking to the bathroom. She looks well, anxious to return home. No further episodes of diarrhea. Family at the bedside. On exam, ABDOMEN: Soft, nontender. Liver and spleen not palpable. Positive bowel sounds x4 in all quadrants. CARDIOVASCULAR: First and second sounds noted. No edema. Blood glucose ranged between 138 and 289. DISCHARGE MEDICATIONS: 1. Multivitamin 1 tab p.o. daily. 2. [place] 1 tab p.o. q.6 hours. 3. Lomotil 1 tab p.o., q.i.d. p.r.n. 4. Synthroid 150 mcg p.o. daily. 5. Zoloft 25 mg p.o. daily. 6. Keppra 500 mg p.o. b.i.d. 7. Glucophage 500 mg p.o. b.i.d. 8. Lipitor 40 mg p.o. at bedtime. 9. Humalog 5 units subcu a.c. t.i.d. 10. Lantus 20 units subcu at bedtime. 11. Lisinopril 5 mg p.o. daily. Follow up with ( ) on 07/19/2016 and [facility] will be visiting the patient in the next week. DISPOSITION: Patient going home with and family members. Along with [facility]. Discharge time more than 35 minutes including discussion. Patient was seen and examined by nurse practitioner, Leah Freitas, and all elements of the case discussed with Dr. Mares attending.
--- NOTE | 2016-07-12 09:40 | DS ---
DATE OF ADMISSION: 07/07/2016 DATE OF DISCHARGE: 07/10/2016 ADDENDUM: This patient was seen and examined by me on 07/10/2016. I reviewed the discharge summary of my nurse practitioner, Ms. Freitas. Discussed and agreed. This is a patient who presented with acute gastroenteritis relating to DKA. Sugars were running high. Medication adjusted. Care was discussed with the patient and family at length. Insulin adjusted. Doing better at the time of discharge. Up and about. On examination, lungs are clear. CARDIOVASCULAR: First and second sounds normal. The rest as in the chart discharge note. Followup as arranged.
== END 2016-07-10 13:46 | disposition home health service (06) | DRG 639 ==
LOC: EC 16:35 → 6SEL 19:31 → 4MS4W 07-08 20:30
PROVIDERS: ADMIT Hospitalist; ATTEND Hospitalist
DX: E13.10 Other specified diabetes mellitus with ketoacidosis without coma (principal); E87.5 Hyperkalemia; E86.0 Dehydration; K52.9 Noninfective gastroenteritis and colitis, unspecified; M19.91 Primary osteoarthritis, unspecified site; K57.90 Diverticulosis of intestine, part unspecified, without perforation or abscess without bleeding; F32.9 Major depressive disorder, single episode, unspecified; Z83.3 Family history of diabetes mellitus; E03.9 Hypothyroidism, unspecified; Z79.4 Long term (current) use of insulin; Z79.84 Long term (current) use of oral hypoglycemic drugs; Z79.899 Other long term (current) drug therapy
CPT/HCPCS: 36415; 51701; 71020; 74000; 80048; 80051; 80053; 80061; 81003; 82009; 82150; 82271; 82272; 82550; 82553; 82565; 82947; 83036; 83605; 83690; 83735; 84100; 84484; 84520; 85025; 85027; 93005; 96361; 96365; 96367; 99285

== ENCOUNTER 2017-06-25 08:07 | Inpatient (IN) | payer MEDICARE ==
[2017-06-25 08:21] LABS: Glucose,Whole Blood 242 mg/dL (75-99)
[2017-06-25] MEDS ORDERED: RX INFO: IV CONTRAST WAS GIVEN 1 EACH MISC MISCELLANE PRN (08:22)
[2017-06-25] MEDS ORDERED: ONDANSETRON 4 MG/2 ML VIAL IVP STA (08:22)
[2017-06-25] MEDS ORDERED: SODIUM CHLORIDE 0.9% 1,000 ML IV STA (08:22)
--- NOTE | 2017-06-25 08:25 | ED ---
General Adult HPI <Luciano Putnam - Last Filed: 06/25/17 11:53> - General Source: patient, RN notes reviewed Mode of arrival: wheelchair Limitations: no limitations <Art Angulo - Last Filed: 06/25/17 12:00> - General Chief complaint: Nausea/Vomiting/Diarrhea Stated complaint: Vomiting-low sugar Time Seen by Provider: 06/25/17 08:16 - History of Present Illness Initial comments: Patient 82-year-old female presenting to the emergency room today with chief complaint of nausea vomiting that started yesterday. Patient states that symptoms of nausea vomiting episodes yesterday. States woke up this morning the shower had another episode of vomiting. Still feeling somewhat nauseated today. States blood sugar at home was 59. States she ate a piece of candy prior to coming to the emergency room. Blood sugar at bedside currently 242. States having some pain left lower side. Does admit to increased gas-type pain but has not been passing. Patient states that last bowel movement was yesterday was normal. Denies any other complaints. Admits to history of colon cancer that is in remission. Patient denies any recent fever, chills, shortness of breath, chest pain, back pain, numbness or tingling, dysuria or hematuria, constipation, headaches or visual changes, or any other complaints. ( Art Angulo) - Related Data Home Medications Medication Instructions Recorded Confirmed Levothyroxine Sodium [Synthroid] 150 mcg PO DAILY 07/07/16 06/25/17 Sertraline HCl [Zoloft] 25 mg PO DAILY 07/07/16 06/25/17 levETIRAcetam [Keppra] 500 mg PO BID 07/07/16 06/25/17 metFORMIN HCL [Glucophage] 500 mg PO BID 07/07/16 06/25/17 Insulin Aspart [NovoLOG Flexpen] 6 - 12 units SQ AC-TID 06/25/17 06/25/17 Insulin Glargine [Lantus] 15 - 20 unit SQ HS 06/25/17 06/25/17 Mirabegron [Myrbetriq] 50 mg PO DAILY 06/25/17 06/25/17 Previous Rx's Medication Instructions Recorded Lisinopril [Zestril] 5 mg PO DAILY #30 tab 07/10/16 Allergies Allergy/AdvReac Type Severity Reaction Status Date / Time sulfamethoxazole Allergy Rash/Hives Verified 06/25/17 08:34 [From Bactrim] trimethoprim [From Bactrim] Allergy Rash/Hives Verified 06/25/17 08:34 Review of Systems ROS Other: All systems not noted in ROS Statement are negative. <Luciano Putnam - Last Filed: 06/25/17 11:53> ROS Other: All systems not noted in ROS Statement are negative. <Art Angulo - Last Filed: 06/25/17 12:00> ROS Statement: Those systems with pertinent positive or pertinent negative responses have been documented in the HPI. Past Medical History Past Medical History: Cancer, Diabetes Mellitus, Osteoarthritis (OA), Renal Disease, Thyroid Disorder, Vascular Disorder Additional Past Medical History / Comment(s): 09/27/14 Pt presented to [facility] ER via EMS. Pt's woke to find the pt having loud breathing that sounded like she was snoring but at the same time she was moving her arm back and forth with a. jerking novement. He attempted to wake hr from sleep but was not able to. Whe pt stopped moving she was not responsive-she gradually regained consciousness but was still confused and unable to speak. coherently. Over the following 15-20 minutes she became able to speak clearly. Other HX: IDDM, colon cancer with surgery and chemo/radiation txs, skin cancer, 2009 2 vertebral fxs, back pain,. arthiritis, frequent diarrhea, hypothyroidism, diverticulosis. History of Any Multi-Drug Resistant Organisms: None Reported Past Surgical History: Bowel Resection, Tonsillectomy, Tubal Ligation Additional Past Surgical History / Comment(s): 1997 or 1998 low anterior rectosigmoid resection, colonoscopies, D&C Past Anesthesia/Blood Transfusion Reactions: No Reported Reaction, Motion Sickness Additional Past Anesthesia/Blood Transfusion Reaction / Comment(s): Pt's believes she had a blood transfusion during colon surgery without reaction. Past Psychological History: No Psychological Hx Reported Smoking Status: Never smoker Past Alcohol Use History: None Reported Past Drug Use History: None Reported - Past Family History Father Family Medical History: Diabetes Mellitus Mother Family Medical History: CVA/TIA, Myocardial Infarction ([place]) Brother(s) Family Medical History: Cancer Sister(s) Family Medical History: No Reported History <Art Angulo - Last Filed: 06/25/17 12:00> General Exam <Luciano Putnam - Last Filed: 06/25/17 11:53> Limitations: no limitations <Art Angulo - Last Filed: 06/25/17 12:00> - General Exam Comments Initial Comments: General: The patient is awake and alert, in no distress, and does not appear acutely ill. Eye: Pupils are equal, round and reactive to light, extra-ocular movements are intact. No nystagmus. There is normal conjunctiva bilaterally. No signs of icterus. Ears, nose, mouth and throat: There are moist mucous membranes and no oral lesions. Neck: The neck is supple, there is no tenderness or JVD. Cardiovascular: There is a regular rate and rhythm. No murmur, rub or gallop is appreciated. Respiratory: Lungs are clear to auscultation, respirations are non-labored, breath sounds are equal. No wheezes, stridor, rales, or rhonchi. Gastrointestinal: Abdomen soft on palpation. Patient does have mild tenderness left lower quadrant. No rebound tenderness. No guarding. No CVA tenderness. Musculoskeletal: Normal ROM, no tenderness. Strength 5/5. Sensation intact. Pulses equal bilaterally 2+. Neurological: A&O x 3. CN II-XII intact, There are no obvious motor or sensory deficits. Coordination appears grossly intact. Speech is normal. Skin: Skin is warm and dry and no rashes or lesions are noted. Psychiatric: Cooperative, appropriate mood & affect, normal judgment. (Art Angulo) Vital Signs 06/25/17 06/25/17 06/25/17 08:09 08:37 09:05 Temperature 98 F Pulse Rate 81 84 83 Respiratory 18 18 18 Rate Blood Pressure 124/64 120/64 139/72 O2 Sat by Pulse 98 97 95 Oximetry Medical Decision Making - Lab Data Result diagrams: 06/25/17 08:28 06/25/17 08:28 <JairLuciano alexander - Last Filed: 06/25/17 11:53> - Lab Data Result diagrams: 06/25/17 08:28 06/25/17 08:28 <Art Angulo - Last Filed: 06/25/17 12:00> - Medical Decision Making 82-year-old female presenting with nausea vomiting and decreased stool output. Patient has history of colon resection with history of GI cancer approximate 20 years ago. She is distended on exam with mild tenderness. CT is obtained which shows a small bowel obstruction with transition point. Case discussed with Dr. Lua, who recommends patient be admitted to internal medicine with general surgery on consult. (Luciano Putnam) - Lab Data Lab Results 06/25/17 06/25/17 06/25/17 Range/Units 08:17 08:28 08:28 WBC 8.8 (3.8-10.6) k/uL RBC 4.72 (3.80-5.40) m/uL Hgb 12.8 (11.4-16.0) gm/dL Hct 41.3 (34.0-46.0) % MCV 87.5 (80.0-100.0) fL MCH 27.2 (25.0-35.0) pg MCHC 31.1 (31.0-37.0) g/dL RDW 15.2 (11.5-15.5) % Plt Count 218 (150-450) k/uL Neutrophils % 78 % Lymphocytes % 14 % Monocytes % 5 % Eosinophils % 1 % Basophils % 0 % Neutrophils # 6.9 (1.3-7.7) k/uL Lymphocytes # 1.2 (1.0-4.8) k/uL Monocytes # 0.5 (0-1.0) k/uL Eosinophils # 0.1 (0-0.7) k/uL Basophils # 0.0 (0-0.2) k/uL Hypochromasia Slight Sodium 138 (137-145) mmol/L Potassium 4.8 (3.5-5.1) mmol/L Chloride 92 L (98-107) mmol/L Carbon Dioxide 30 (22-30) mmol/L Anion Gap 16 mmol/L BUN 20 H (7-17) mg/dL Creatinine 0.94 (0.52-1.04) mg/dL Est GFR (CKD-EPI)AfAm 66 (>60 ml/min/1.73 sqM) Est GFR (CKD-EPI)NonAf 57 (>60 ml/min/1.73 sqM) Glucose 288 H (74-99) mg/dL POC Glucose (mg/dL) 242 H (75-99) mg/dL POC Glu Pretzel Twisting Machine Operator ID Calcium 10.2 (8.4-10.2) mg/dL Total Bilirubin 1.6 H (0.2-1.3) mg/dL AST 55 H (14-36) U/L ALT 48 (9-52) U/L Alkaline Phosphatase 69 (38-126) U/L Total Protein 6.2 L (6.3-8.2) g/dL Albumin 3.9 (3.5-5.0) g/dL Amylase 48 (30-110) U/L Lipase 34 (23-300) U/L Acetone, Qual Negative (Negative) Disposition <Luciano Putnam - Last Filed: 06/25/17 11:53> Is patient prescribed a controlled substance at d/c from ED?: No Time of Disposition: 12:00 <Art Angulo - Last Filed: 06/25/17 12:00> Clinical Impression: SBO (small bowel obstruction) Disposition: ADMITTED IP TO THIS HOSP Condition: Stable Referrals: Manoj Turpin MD [Primary Care Provider] - 1-2 days
[2017-06-25 08:50] LABS: Basophils % (A) 0 %; Eosinophils # (A) 0.1 k/uL (0-0.7); Eosinophils % (A) 1 %; HCT 41.3 % (34.0-46.0); HGB 12.8 gm/dL (11.4-16.0); Hypochromasia Slight; Lymphocytes # (A) 1.2 k/uL (1.0-4.8); Lymphocytes % (A) 14 %; MCH 27.2 pg (25.0-35.0); MCHC 31.1 g/dL (31.0-37.0); MCV 87.5 fL (80.0-100.0); Mean Platelet Volume 8.8; Monocytes # (A) 0.5 k/uL (0-1.0); Monocytes % (A) 5 %; Neutrophils # (A) 6.9 k/uL (1.3-7.7); Neutrophils % (A) 78 %; Platelet Count 218 k/uL (150-450); RBC 4.72 m/uL (3.80-5.40); RDW 15.2 % (11.5-15.5); WBC 8.8 k/uL (3.8-10.6)
[2017-06-25 09:06] LABS: ALT 48 U/L (9-52); AST 55 U/L (14-36); Albumin 3.9 g/dL (3.5-5.0); Alkaline Phosphatase 69 U/L (38-126); Amylase 48 U/L (30-110); Anion Gap 16 mmol/L; Blood Urea Nitrogen 20 mg/dL (7-17); Calcium 10.2 mg/dL (8.4-10.2); Carbon Dioxide 30 mmol/L (22-30); Chloride 92 mmol/L (98-107); Glucose 288 mg/dL (74-99); Lipase 34 U/L (23-300); Potassium 4.8 mmol/L (3.5-5.1); Sodium 138 mmol/L (137-145); Total Bilirubin 1.6 mg/dL (0.2-1.3); Total Protein 6.2 g/dL (6.3-8.2)
--- NOTE | 2017-06-25 11:10 | CT ---
EXAMINATION TYPE: CT abdomen pelvis w con DATE OF EXAM: 06/25/2017 HISTORY: Left lower quadrant pain with nausea and vomiting. CT DLP: 356.5mGycm Automated Exposure Control for Dose Reduction was Utilized. CONTRAST: CT scan of the abdomen and pelvis is performed without oral but with IV Contrast, patient injected wi th 80 mL of Isovue 300. COMPARISON: Prior CT abdomen and pelvis July 24, 2015. FINDINGS: LUNG BASES: There is scattered bibasilar linear scarring and/or atelectasis. LIVER/GB: There is small amount of perihepatic ascites anteriorly and superiorly now identified. PANCREAS: Atrophic pancreas is present. SPLEEN: There is new small amount of perisplenic ascites. ADRENALS: No significant abnormality is seen. KIDNEYS: No significant abnormality is seen. BOWEL: There is moderate to large size hiatal hernia or intrathoracic stomach with abnormal twisting above diaphragm. There are fluid-filled prominent and dilated small bowel loops throughout the abdome n and pelvis. Fecal material is seen in nondistended colon along the periphery. There is anterior brandie ntration in the pelvis containing ascites and portion of distal small bowel loop. There is no suspici ous more focal proximal or distal dilatation. Suspect small bowel feces sign in the terminal ileum. T ransition point not definitively identified presumed in distal small bowel of the pelvis. Small bowel loops are dilated up to 4.0 cm coronal image 34. Some nondilated small bowel loops are seen in the c entral pelvis. Transition point may be present coronal image 42. UTERUS/ADNEXA: Anteverted uterus is seen best on sagittal image 43. LYMPH NODES: No greater than 1cm abdominal or pelvic lymph nodes are appreciated. OSSEOUS STRUCTURES: Osseous structures are somewhat demineralized. Moderate compression type fracture L1 level (previously labeled T12 level) with posterior retropulsion of superior aspect of vertebra i s redemonstrated on sagittal image 55 effacing anterior thecal sac not significantly changed from galen or. There are old fracture deformities of left superior and inferior pelvic rami redemonstrated. Ther e is narrowing and spurring at pubic symphysis. There is moderate joint space loss in both hips. 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 OTHER: There is small amount of diffuse abdominal and pelvic ascites. IMPRESSION: CT findings are consistent with new distal small bowel obstruction. Advise surgical consu ltation. Transition point is felt present in the central pelvis just left of midline coronal image 42 . New mild abdominal and pelvic ascites is present.
[2017-06-25] MEDS ORDERED: NALOXONE 0.4 MG/ML 1 ML VIAL IV PRN (12:00)
[2017-06-25] MEDS ORDERED: SODIUM CHLORIDE 0.9% 1,000 ML IV ONE ×2 (12:00→20:09)
[2017-06-25 12:25] LABS: Glucose,Whole Blood 335 mg/dL (75-99)
[2017-06-25 12:58] LABS: Glucose,Whole Blood 355 mg/dL (75-99)
[2017-06-25] MEDS: INSULIN ASPART 100 UNIT/ML 1 ML 10 ML VIAL SQ SCH ×3 (13:11→22:54)
[2017-06-25 14:36] LABS: Appearance,Urine Cloudy (Clear); Bilirubin,Urine Negative (Negative); Blood,Urine Trace (Negative); Color,Urine Yellow; Glucose,Urine (UA) 4+ (Negative); Leukocyte Esterase,Urine Large (Negative); Mucus,Urine Rare /hpf; Nitrite,Urine Negative (Negative); PH, Urine 5.5 (5.0-8.0); Protein,Urine Trace (Negative); RBC,Urine 59 /hpf (0-5); Squamous Epithelial Cell,Urine 14 /hpf (0-4); WBC,Urine 8 /hpf (0-5)
[2017-06-25 14:41] LABS: Ketones,Urine 2+ (Negative)
[2017-06-25 14:45] LABS: Specific Gravity,Urine 1.049 (1.001-1.035)
[2017-06-25 17:34] LABS: Glucose,Whole Blood 300 mg/dL (75-99)
[2017-06-25] MEDS ORDERED: METOCLOPRAMIDE 5 MG/ML 2 ML VIAL IVP PRN (19:50)
[2017-06-25] MEDS: MORPHINE SULFATE 4 MG/ML SYRINGE IV PRN (20:01)
[2017-06-25] MEDS: ONDANSETRON 4 MG/2 ML VIAL IVP PRN (20:01)
[2017-06-25 20:03] LABS: Glucose,Whole Blood 210 mg/dL (75-99)
--- NOTE | 2017-06-25 20:05 | P.GSCN ---
History of Present Illness Consult date: 06/25/17 Reason for Consult: Bowel obstruction Requesting physician: Seymour Mares History of present illness: The patient is an 82-year-old female who comes in with 4 day history of nausea and inability to pass flatus. She reports having a similar episode over 3 months ago when she was came in the [facility]. She was diagnosed with diverticulitis however without imaging at that time. Her history is significant for bowel resection for colon cancer over 19 years ago, in 1998 at [facility] as reported by her . Separately, she comes in with nausea. Her oral take has been low. Her normal blood sugars are between 122 to 200s. At present her blood sugars are over 300. She reports low appetite. Her last colonoscopy was in 5 years and was unremarkable per her . Her son is also at bedside. She denies any moderate distention. Review of Systems CONSTITUTIONAL: Denies any fever or chills. Denies recent weight gain. HEENT: Denies any trouble with vision, hearing or nosebleeds. LYMPHATIC: The patient denies any lumps and bumps around the neck. ENDOCRINE: Has thyroid disorders. Has blood sugar glucose intolerance. RESPIRATORY: Denies pneumonia. Denies any troubles with breathing or dyspnea on exertion. CARDIOVASCULAR: Denies any chest pain, palpitations, or recent heart attacks. GASTROINTESTINAL: Denies heart burn. Has chronic diarrhea. No bright red blood per rectum. GENITOURINARY: Has overactive bladder. Has active urinary tract infection. MUSCULOSKELETAL: Has back pain, stiffness, joint arthritis. NEUROLOGIC: Denies any numbness or tingling along the distal extremities. Has seizure disorders. PSYCHIATRIC: Has depression. No suidical ideation. HEMATOLOGIC: Denies any abnormal bleeding or bruising. BREASTS: Denies any breast lumps, pain or nipple discharge. Past Medical History Past Medical History: Cancer, Diabetes Mellitus, Osteoarthritis (OA), Seizure Disorder, Thyroid Disorder Additional Past Medical History / Comment(s): IDDM, DKA, colon cancer with surgery and chemo/radiation txs, skin cancer, 2014 seizure, 2008 2 vertebral fxs , back pain, arthiritis bilateral hands, frequent diarrhea, diverticulosis, hypothyroidism. History of Any Multi-Drug Resistant Organisms: None Reported Past Surgical History: Bowel Resection, Tonsillectomy, Tubal Ligation Additional Past Surgical History / Comment(s): 1998 low anterior rectosigmoid resection, colonoscopies, D&C, skin cancer removal. Past Anesthesia/Blood Transfusion Reactions: No Reported Reaction, Motion Sickness Additional Past Anesthesia/Blood Transfusion Reaction / Comm: Pt's believes she had a blood transfusion during colon surgery without reaction. Past Psychological History: No Psychological Hx Reported Additional Psychological History / Comment(s): Pt resides with her spouse. She is independent with her ADLs. She uses a walker. She states she can drive. Smoking Status: Never smoker Past Alcohol Use History: None Reported Past Drug Use History: None Reported - Past Family History Father Family Medical History: Diabetes Mellitus Additional Family Medical History / Comment(s): Father lived to be 95yrs old. Mother Family Medical History: CVA/TIA, Myocardial Infarction ([place]) Additional Family Medical History / Comment(s): Mother had a CVA. Brother(s) Family Medical History: Cancer Sister(s) Family Medical History: No Reported History Medications and Allergies Home Medications Medication Instructions Recorded Confirmed Type Levothyroxine Sodium [Synthroid] 150 mcg PO DAILY 07/07/16 06/25/17 History Sertraline HCl [Zoloft] 25 mg PO DAILY 07/07/16 06/25/17 History levETIRAcetam [Keppra] 500 mg PO BID 07/07/16 06/25/17 History metFORMIN HCL [Glucophage] 500 mg PO BID 07/07/16 06/25/17 History Lisinopril [Zestril] 5 mg PO DAILY #30 tab 07/10/16 06/25/17 Rx Insulin Aspart [NovoLOG Flexpen] 6 - 12 units SQ AC-TID 06/25/17 06/25/17 History Insulin Glargine [Lantus] 15 - 20 unit SQ HS 06/25/17 06/25/17 History Mirabegron [Myrbetriq] 50 mg PO DAILY 06/25/17 06/25/17 History Allergies Allergy/AdvReac Type Severity Reaction Status Date / Time sulfamethoxazole Allergy Rash/Hives Verified 06/25/17 08:34 [From Bactrim] trimethoprim [From Bactrim] Allergy Rash/Hives Verified 06/25/17 08:34 Surgical - Exam Vital Signs Temp Pulse Resp BP Pulse Ox 98 F 81 18 124/64 98 06/25/17 08:09 06/25/17 08:09 06/25/17 08:09 06/25/17 08:09 06/25/17 08:09 GENERAL: Well developed and in no acute distress. Pleasant. HEENT: No sclera icterus. Extraocular movements grossly intact. Dry buccal mucosa. Head is atraumatic, normocephalic. Hears conversational speech. No nasal drainage. NECK: Supple without lymphadenopathy. CHEST: Non-labored respirations and equal bilateral excursions. CARDIOVASCULAR: Regular rate and rhythm. Palpable 2+ radial pulses. ABDOMEN: Soft, mild distention. No peritonitis. Tender bilateral upper abdomen. MUSCULOSKELETAL: No clubbing, cyanosis or edema. NEUROLOGIC: No focal or lateralizing signs. PSYCH: Appropriate affect. Alert and oriented to person, place and time. SKIN: Poor skin turgor. Well perfused. Results - Labs 06/25/17 08:28 06/25/17 08:28 Abnormal Lab Results - Last 24 Hours (Table) 06/25/17 06/25/17 06/25/17 Range/Units 08:17 08:28 12:11 Chloride 92 L (98-107) mmol/L BUN 20 H (7-17) mg/dL Glucose 288 H (74-99) mg/dL POC Glucose (mg/dL) 242 H 335 H (75-99) mg/dL Total Bilirubin 1.6 H (0.2-1.3) mg/dL AST 55 H (14-36) U/L Total Protein 6.2 L (6.3-8.2) g/dL Urine Appearance (Clear) Ur Specific [place] (1.001-1.035) Urine Protein (Negative) Urine Glucose (UA) (Negative) Urine Ketones (Negative) Urine Blood (Negative) Ur Leukocyte Esterase (Negative) Urine RBC (0-5) /hpf Urine WBC (0-5) /hpf Ur Squamous Epith Cells (0-4) /hpf Urine Mucus (None) /hpf 06/25/17 06/25/17 06/25/17 Range/Units 12:55 14:15 17:16 Chloride (98-107) mmol/L BUN (7-17) mg/dL Glucose (74-99) mg/dL POC Glucose (mg/dL) 355 H 300 H (75-99) mg/dL Total Bilirubin (0.2-1.3) mg/dL AST (14-36) U/L Total Protein (6.3-8.2) g/dL Urine Appearance Cloudy H (Clear) Ur Specific [place] 1.049 H (1.001-1.035) Urine Protein Trace H (Negative) Urine Glucose (UA) 4+ H (Negative) Urine Ketones 2+ H (Negative) Urine Blood Trace H (Negative) Ur Leukocyte Esterase Large H (Negative) Urine RBC 59 H (0-5) /hpf Urine WBC 8 H (0-5) /hpf Ur Squamous Epith Cells 14 H (0-4) /hpf Urine Mucus Rare H (None) /hpf Diabetes panel 06/25/17 Range/Units 08:28 Sodium 138 (137-145) mmol/L Potassium 4.8 (3.5-5.1) mmol/L Chloride 92 L (98-107) mmol/L Carbon Dioxide 30 (22-30) mmol/L BUN 20 H (7-17) mg/dL Creatinine 0.94 (0.52-1.04) mg/dL Glucose 288 H (74-99) mg/dL Calcium 10.2 (8.4-10.2) mg/dL AST 55 H (14-36) U/L ALT 48 (9-52) U/L Alkaline Phosphatase 69 (38-126) U/L Total Protein 6.2 L (6.3-8.2) g/dL Albumin 3.9 (3.5-5.0) g/dL Calcium panel 06/25/17 Range/Units 08:28 Calcium 10.2 (8.4-10.2) mg/dL Albumin 3.9 (3.5-5.0) g/dL Pituitary panel 06/25/17 Range/Units 08:28 Sodium 138 (137-145) mmol/L Potassium 4.8 (3.5-5.1) mmol/L Chloride 92 L (98-107) mmol/L Carbon Dioxide 30 (22-30) mmol/L BUN 20 H (7-17) mg/dL Creatinine 0.94 (0.52-1.04) mg/dL Glucose 288 H (74-99) mg/dL Calcium 10.2 (8.4-10.2) mg/dL Adrenal panel 05/09/18 Range/Units 08:28 Sodium 138 (137-145) mmol/L Potassium 4.8 (3.5-5.1) mmol/L Chloride 92 L (98-107) mmol/L Carbon Dioxide 30 (22-30) mmol/L BUN 20 H (7-17) mg/dL Creatinine 0.94 (0.52-1.04) mg/dL Glucose 288 H (74-99) mg/dL Calcium 10.2 (8.4-10.2) mg/dL Total Bilirubin 1.6 H (0.2-1.3) mg/dL AST 55 H (14-36) U/L ALT 48 (9-52) U/L Alkaline Phosphatase 69 (38-126) U/L Total Protein 6.2 L (6.3-8.2) g/dL Albumin 3.9 (3.5-5.0) g/dL - Imaging CT scan - abdomen: report reviewed, image reviewed CT scan - pelvis: report reviewed, image reviewed (Imaging reviewed in detail with dilated small bowel loops throughout. Patient has intrathoracic stomach with gastric volvulus. Decompressed small bowel found within the pelvis. Hernia of the subcutaneous tissue of the lower abdomen identified. Diffuse ascites.) Assessment and Plan (1) Pyuria Current Visit: Yes Status: Acute Code(s): N39.0 - URINARY TRACT INFECTION, SITE NOT SPECIFIED SNOMED Code(s): 6922165 (2) Gastric volvulus Current Visit: Yes Status: Acute Code(s): K31.89 - OTHER DISEASES OF STOMACH AND DUODENUM SNOMED Code(s): 26034638 (3) Diverticulosis Current Visit: Yes Status: Acute Code(s): K57.90 - DVRTCLOS OF INTEST, PART UNSP, W/O PERF OR ABSCESS W/O BLEED SNOMED Code(s): 29867824 (4) History of colon cancer Current Visit: Yes Status: Acute Code(s): Z85.038 - PERSONAL HISTORY OF MALIGNANT NEOPLASM OF LARGE INTESTINE SNOMED Code(s): 722746802 (5) Nausea & vomiting Current Visit: Yes Status: Acute Code(s): R11.2 - NAUSEA WITH VOMITING, UNSPECIFIED SNOMED Code(s): 04854172 (6) Hypothyroidism Current Visit: Yes Status: Acute Code(s): E03.9 - HYPOTHYROIDISM, UNSPECIFIED SNOMED Code(s): 42081906 (7) Seizure disorder Current Visit: Yes Status: Acute Code(s): G40.909 - EPILEPSY, UNSP, NOT INTRACTABLE, WITHOUT STATUS EPILEPTICUS SNOMED Code(s): 655818984 (8) Poorly controlled type 2 diabetes mellitus Current Visit: Yes Status: Acute Code(s): E11.65 - TYPE 2 DIABETES MELLITUS WITH HYPERGLYCEMIA SNOMED Code(s): 72201435 (9) SBO (small bowel obstruction) Current Visit: Yes Status: Acute Code(s): K56.609 - UNSP INTESTNL OBST, UNSP TO PARTIAL VERSUS COMPLETE OBST SNOMED Code(s): 438168769 (10) Dehydration Current Visit: No Status: Acute Code(s): E86.0 - DEHYDRATION SNOMED Code(s ): 84400679 Plan: 1. I discussed the findings of bowel obstruction including risks of no surgical intervention. The patient has had prolonged symptoms beyond 4 days and is at risk for need for bowel resection due to bowel ischemia. 2. Her blood sugars are poorly controlled. Management per primary team. 3. Additionally, she has gastric volvulus which placement of a nasogastric tube is deleterious. Recommend antiemetics only. 4. Recommend cardiac risk assessment. 5. IV fluid hydration advised. 6. Nothing by mouth at this time. 7. Recommend exploratory laparotomy with possible bowel resection as the patient's condition has been chronic and inability for conservative management with nasogastric decompression as she has concurrent chronic gastric volvulus. 8. Benefits and risks of surgery were reviewed in detail. 9. Type and screen advised. Time with Patient: Greater than 30
[2017-06-25] MEDS: INSULIN DETEMIR 100 UNIT/ML 10 ML VIAL SQ SCH (22:53)
[2017-06-25] MEDS: HEPARIN SODIUM,PORCINE 5,000 UNIT/ML 1 ML VIAL SQ SCH (22:54)
[2017-06-25] MEDS: LACTATED RINGERS 1,000 ML IV SCH (22:54)
[2017-06-25] MEDS: LEVOTHYROXINE IVP 100 MCG/5 ML VIAL IV SCH ×2 (22:55)
[2017-06-25] MEDS: levETIRAcetam IV 500 MG in SODIUM CHLORIDE 0.9% 100 ML IVPB SCH (22:55)
--- NOTE | 2017-06-25 22:55 | HP ---
HISTORY AND PHYSICAL DATE OF ADMISSION: 06/25/2017 PRESENTING COMPLAINT: Abdominal pain. HISTORY OF PRESENTING COMPLAINT: A very pleasant 82-year-old patient of Dr. Turpin. Chronic stable medical conditions include diabetes, osteoarthritis, seizures, hypothyroid. For the last 4-5 days. For the last 5 days at least, the patient has not had a bowel movement, has not passed any flatus. Normally, she goes every day, started having increasing abdominal pain and also started vomiting. Denied any fever. The patient does not remember throwing up any fecal matter. In the ER, CT scan did show small-bowel obstruction with a cutoff point and also found to have a large hiatal hernia which is partially twisted into the intrathoracic cavity. NG tube was not placed in the ER. Patient did receive some morphine a short time ago and her pain is feeling better. The patient denies any chest pain or shortness of breath. Denies any cardiac history. Has got a fair exercise tolerance. REVIEW OF SYSTEMS: CONSTITUTIONAL: Tired. HEENT: None. RESPIRATORY: None. CARDIOVASCULAR: None. GASTROINTESTINAL: As above. GENITOURINARY: None. MUSCULOSKELETAL: Arthritic pain in many joints. DERMATOLOGICAL: None. HEMATOLOGIC: None. LYMPHATICS: None. PSYCHIATRY: None. NEUROLOGICAL: None. PAST MEDICAL HISTORY: Diabetes mellitus type 2, osteoarthritis, seizure disorder, hypothyroid, colon cancer with surgery and chemo radiation, skin cancer, seizure, about 2 vertebral fractures, arthritis, especially in the hands, diverticulosis. PAST SURGICAL HISTORY: Bowel resection, tonsillectomy, tubal ligation, low anterior rectosigmoid resection 1998, skin cancer removed. SOCIAL HISTORY: Does not smoke or drink alcohol. Does use a walker, is somewhat independent. . FAMILY HISTORY: Diabetes mellitus type 2. HOME MEDICATIONS: 1. Metformin 500 mg b.i.d. 2. Keppra 500 mg p.o. b.i.d. 3. Zoloft 25 mg p.o. daily. 4. Myrbetriq 50 mg p.o. daily. 5. Zestril 5 mg p.o. daily. 6. Synthroid 150 mcg p.o. daily. 7. Lantus 15-20 units subcu q.h.s. 8. NovoLog 6-12 units subcu a.c. t.i.d. ALLERGIES: BACTRIM. EXAMINATION: Temperature 98.9, pulse 73, respirations 16, blood pressure 110/59, pulse ox 92% on room air. GENERAL APPEARANCE: Thin build, lying in bed, awake. EYES: Pupils equal. Conjunctivae normal. HEENT: External appearance of nose and ears normal. Oral cavity: Dry mucous membranes. NECK: JVD not raised. Mass not palpable. RESPIRATORY: Effort normal. LUNGS: Fair air entry. CARDIOVASCULAR: First and second sounds normal. No edema. ABDOMEN: Mild tenderness. Hyperactive bowel sounds. No guarding or rigidity. Liver and spleen not palpable. LYMPHATIC: No lymph node palpable in neck or axillae. PSYCHIATRY: Alert and oriented x3. Mood and affect normal. NEUROLOGICAL: Pupils equal. Cranial nerve grossly intact. Power and sensation grossly intact. MUSCULOSKELETAL: Evidence of osteoarthritis, especially in the hands and knees. INVESTIGATIONS: White count 8.8, hemoglobin 12.8, platelets 218. Potassium 4.8, BUN 20, creatinine 0.94. Accu-Cheks 242, 335. Serum acetone negative. CT scan of the abdomen and pelvis showed compression fracture of L1,distal bowel obstruction, intrathoracic stomach with abnormal twisting above the diaphragm. ASSESSMENT: 1. Acute distal small-bowel obstruction. 2. Moderate to large hiatal hernia with some abnormal twisting above the diaphragm. 3. Chronic L1 compression fracture. 4. Primary osteoarthritis in multiple joints, bilateral. 5. Diabetes mellitus type 2, chronically on insulin. 6. Chronic seizure disorder. 7. Hypothyroidism. 8. History of colon cancer with partial bowel obstruction. PLAN: From a diabetes standpoint, will start the patient on Lantus 20 units and will stop patient's scheduled insulin and keep her on sliding scale every 6 hours. The patient's metformin will be discontinued. Will switch the patient's Keppra to IV and also switch the patient's current dose of Synthroid to IV every 48 hours. From a cardiovascular risk assessment standpoint, patient has got fair exercise tolerance, has no cardiac or pulmonary symptoms. Hence, the patient should be able to proceed for surgery, given that this is more of an urgent procedure and patient will not need any stress testing at this point. This was discussed with the patient. Dr. Lua from General Surgery did talk to the patient and family earlier and tentatively scheduling the patient for surgery tomorrow afternoon. I did discuss with the patient. Of course the patient is apprehensive for the procedure, but did understand after I explained to her that this will be necessary, since Dr. Lua is not comfortable putting in an NG tube, given some twisting of the stomach, though at the same time, the patient has had no trouble swallowing and throwing up of food in the past, so I think the twisting of the stomach is probably chronic and if need be, then probably a trial of NG tube could be done, but I will defer this final determination by Dr. Lua, depending on the clinical picture of the patient, how it proceeds. MMODL / IJN: [id number] /
[2017-06-26 01:23] LABS: Glucose,Whole Blood 144 mg/dL (75-99)
[2017-06-26 01:45] LABS: Hemoglobin A1C 10.1 % (4.0-6.0)
[2017-06-26] MEDS: INSULIN ASPART 100 UNIT/ML 1 ML 10 ML VIAL SQ SCH ×4 (04:46→17:21)
[2017-06-26 06:57] LABS: Glucose,Whole Blood 192 mg/dL (75-99)
[2017-06-26] MEDS: LACTATED RINGERS 1,000 ML IV SCH ×2 (07:05→17:03)
[2017-06-26 07:31] LABS: Basophils % (A) 0 %; Eosinophils # (A) 0.2 k/uL (0-0.7); Eosinophils % (A) 5 %; HCT 35.9 % (34.0-46.0); HGB 10.9 gm/dL (11.4-16.0); Hypochromasia Slight; Lymphocytes # (A) 1.1 k/uL (1.0-4.8); Lymphocytes % (A) 22 %; MCH 26.8 pg (25.0-35.0); MCHC 30.5 g/dL (31.0-37.0); Mean Platelet Volume 8.6; Monocytes # (A) 0.4 k/uL (0-1.0); Monocytes % (A) 8 %; Neutrophils # (A) 3.1 k/uL (1.3-7.7); Neutrophils % (A) 65 %; Platelet Count 168 k/uL (150-450); RBC 4.08 m/uL (3.80-5.40); WBC 4.8 k/uL (3.8-10.6)
[2017-06-26 07:45] LABS: Albumin 2.8 g/dL (3.5-5.0); Calcium 8.6 mg/dL (8.4-10.2); Potassium 4.7 mmol/L (3.5-5.1); Total Bilirubin 1.2 mg/dL (0.2-1.3); Total Protein 4.9 g/dL (6.3-8.2)
[2017-06-26 07:55] LABS: INR 1.2 (<1.2); Prothrombin Time 11.7 sec (9.0-12.0)
[2017-06-26] MEDS: levETIRAcetam IV 500 MG in SODIUM CHLORIDE 0.9% 100 ML IVPB SCH (08:23)
[2017-06-26] MEDS: HEPARIN SODIUM,PORCINE 5,000 UNIT/ML 1 ML VIAL SQ SCH (08:39)
--- NOTE | 2017-06-26 08:57 | XR ---
EXAMINATION TYPE: XR chest 2V DATE OF EXAM: 06/26/2017 COMPARISON: 07/07/2016 TECHNIQUE: PA and lateral views submitted. HISTORY: Pain, nausea, hiatal hernia FINDINGS: Hyperinflation noted with chronic rib deformities and left lower lobe infiltrate with small effusion. Biapical pleural thickening. Diffuse osteopenia, arthropathy of the shoulders and degenerative mendoza e spine. Underlying chronic lung disease suspected. IMPRESSION: 1. Left lower lobe infiltrate and small pleural effusion.
--- NOTE | 2017-06-26 08:57 | P.CRDCN ---
History of Present Illness Consult date: 06/26/17 Chief complaint: Abdominal discomfort History of present illness: This is a pleasant 82-year-old female patient who does not see any assistant statistician with a past medical history significant for diabetes presented to the hospital complaining of abdominal discomfort started about 4-5 days ago. The patient was not passing any gas is for about 5 days. She was having increasing abdominal discomfort for and lately nausea and vomiting. She underwent a computed tomography scan of the abdomen and that showed small bowel obstruction and the patient was seen and evaluated by general surgeon and she is going to have surgery later on today. From the cardiac vascular standpoint overview, she denies having any chest pain or discomfort or difficulty breathing or feeling of heart racing or fluttering or dizziness or lightheadedness or syncope. No documented history of coronary artery disease or congestive heart failure or cardiac arrhythmia. As a mentioned earlier never seen and evaluated by assistant statistician. The EKG showed sinus rhythm with LBBB. On physical examination she does have a systolic murmur at the right upper sternal border consistent with mild to moderate or moderate aortic stenosis. From the cardiac vascular standpoint of view, the patient can proceed with the surgery. Past Medical History Past Medical History: Cancer, Diabetes Mellitus, Osteoarthritis (OA), Seizure Disorder, Thyroid Disorder Additional Past Medical History / Comment(s): IDDM, DKA, colon cancer with surgery and chemo/radiation txs, skin cancer, 2014 seizure, 2008 2 vertebral fxs , back pain, arthiritis bilateral hands, frequent diarrhea, diverticulosis, hypothyroidism. History of Any Multi-Drug Resistant Organisms: None Reported Past Surgical History: Bowel Resection, Tonsillectomy, Tubal Ligation Additional Past Surgical History / Comment(s): 1998 low anterior rectosigmoid resection, colonoscopies, D&C, skin cancer removal. Past Anesthesia/Blood Transfusion Reactions: No Reported Reaction, Motion Sickness Additional Past Anesthesia/Blood Transfusion Reaction / Comment(s): Pt's believes she had a blood transfusion during colon surgery without reaction. Past Psychological History: No Psychological Hx Reported Additional Psychological History / Comment(s): Pt resides with her spouse. She is independent with her ADLs. She uses a walker. She states she can drive. Smoking Status: Never smoker Past Alcohol Use History: None Reported Past Drug Use History: None Reported - Past Family History Father Family Medical History: Diabetes Mellitus Additional Family Medical History / Comment(s): Father lived to be 95yrs old. Mother Family Medical History: CVA/TIA, Myocardial Infarction ([place]) Additional Family Medical History / Comment(s): Mother had a CVA. Brother(s) Family Medical History: Cancer Sister(s) Family Medical History: No Reported History Medications and Allergies Home Medications Medication Instructions Recorded Confirmed Type Levothyroxine Sodium [Synthroid] 150 mcg PO DAILY 07/07/16 06/25/17 History Sertraline HCl [Zoloft] 25 mg PO DAILY 07/07/16 06/25/17 History levETIRAcetam [Keppra] 500 mg PO BID 07/07/16 06/25/17 History metFORMIN HCL [Glucophage] 500 mg PO BID 07/07/16 06/25/17 History Lisinopril [Zestril] 5 mg PO DAILY #30 tab 07/10/16 06/25/17 Rx Insulin Aspart [NovoLOG Flexpen] 6 - 12 units SQ AC-TID 06/25/17 06/25/17 History Insulin Glargine [Lantus] 15 - 20 unit SQ HS 06/25/17 06/25/17 History Mirabegron [Myrbetriq] 50 mg PO DAILY 06/25/17 06/25/17 History Allergies Allergy/AdvReac Type Severity Reaction Status Date / Time sulfamethoxazole Allergy Rash/Hives Verified 06/25/17 08:34 [From Bactrim] trimethoprim [From Bactrim] Allergy Rash/Hives Verified 06/25/17 08:34 Physical Exam Vitals: Vital Signs Temp Pulse Pulse Pulse Resp BP BP 06/26/17 06:58 16 06/26/17 06:55 97.7 F 67 16 105/58 06/26/17 01:06 98.1 F 65 15 104/61 06/25/17 19:27 98.9 F 73 16 110/59 06/25/17 15:24 98 F 81 16 121/69 06/25/17 12:40 98.4 F 81 18 125/56 06/25/17 12:10 98.8 F 78 18 135/68 06/25/17 09:05 83 18 139/72 Pulse Ox 06/26/17 06:58 06/26/17 06:55 94 L 06/26/17 01:06 92 L 06/25/17 19:27 92 L 06/25/17 15:24 97 06/25/17 12:40 95 06/25/17 12:10 95 06/25/17 09:05 95 Intake and Output 06/25/17 06/26/17 06/26/17 22:59 06:59 14:59 Output Total 200 Balance -200 Output: Urine 200 Other: Voiding Method Toilet Toilet # Voids 1 - Constitutional General appearance: no acute distress - Respiratory Respiratory: bilateral: CTA - Cardiovascular Rhythm: regular Heart sounds: normal: S1, S2 Abnormal Heart Sounds: systolic murmur Results 06/26/17 07:01 06/26/17 07:01 Cardiac Enzymes 06/25/17 06/26/17 Range/Units 08:28 07:01 AST 55 H 34 (14-36) U/L Coagulation 06/26/17 Range/Units 07:01 PT 11.7 (9.0-12.0) sec CBC 06/26/17 Range/Units 07:01 WBC 4.8 (3.8-10.6) k/uL RBC 4.08 (3.80-5.40) m/uL Hgb 10.9 L (11.4-16.0) gm/dL Hct 35.9 (34.0-46.0) % Plt Count 168 (150-450) k/uL Comprehensive Metabolic Panel 06/25/17 06/26/17 Range/Units 08:28 07:01 Sodium 138 139 (137-145) mmol/L Potassium 4.8 4.7 (3.5-5.1) mmol/L Chloride 92 L 100 (98-107) mmol/L Carbon Dioxide 30 30 (22-30) mmol/L BUN 20 H 16 (7-17) mg/dL Creatinine 0.94 0.77 (0.52-1.04) mg/dL Glucose 288 H 192 H (74-99) mg/dL Calcium 10.2 8.6 (8.4-10.2) mg/dL AST 55 H 34 (14-36) U/L ALT 48 32 (9-52) U/L Alkaline Phosphatase 69 48 (38-126) U/L Total Protein 6.2 L 4.9 L (6.3-8.2) g/dL Albumin 3.9 2.8 L (3.5-5.0) g/dL Current Medications Generic Name Dose Route Start Last Admin Trade Name Freq PRN Reason Stop Dose Admin Heparin Sodium (Porcine) 5,000 unit 06/25/17 21:00 06/26/17 08:39 Heparin SQ 5,000 unit Q12HR FOUZIA Administration Levetiracetam 500 mg/ Sodium 105 mls @ 400 mls/hr 06/25/17 22:00 06/26/17 08: 23 Chloride IVPB 400 mls/hr Q12HR FOUZIA Administration Lactated Ringer's 1,000 mls @ 100 mls/hr 06/25/17 21:45 06/26/17 07:05 Lactated Ringers IV 100 mls/hr .Q10H FOUZIA Administration Insulin Aspart 0 unit 06/26/17 00:00 06/26/17 07:06 Novolog SQ 2 unit Q6HR FOUZIA Administration Protocol Insulin Detemir 15 unit 06/25/17 21:45 06/25/17 22:53 Levemir SQ Not Given HS FOUZIA Levothyroxine Sodium 100 mcg 06/25/17 22:00 06/25/17 22:55 Synthroid Ivp IV 100 mcg Q48H FOUZIA Administration Levothyroxine Sodium 50 mcg 06/25/17 22:00 06/25/17 22:55 Synthroid Ivp IV 50 mcg Q48H FOUZIA Administration Metoclopramide HCl 10 mg 06/25/17 19:50 Reglan IVP Q6HR PRN Nausea Miscellaneous Information 1 each 06/25/17 08:22 06/25/17 09:05 Rx Info: Iv Contrast Was Given MISCELLANE 06/27/17 08:23 1 each DAILY PRN Administration Per Protocol Morphine Sulfate 4 mg 06/25/17 12:00 06/25/17 20:01 Morphine Sulfate (Inj) IV 4 mg Q4HR PRN Administration Severe Pain Naloxone HCl 0.2 mg 06/25/17 12:00 Narcan IV Q2M PRN Opioid Reversal Ondansetron HCl 4 mg 06/25/17 12:00 06/25/17 20:01 Zofran IVP 4 mg Q8HR PRN Administration Nausea And Vomiting Intake and Output 06/25/17 06/26/17 06/26/17 22:59 06:59 14:59 Output Total 200 Balance -200 Output: Urine 200 Other: Voiding Method Toilet Toilet # Voids 1 06/26/17 07:01 06/26/17 07:01 Assessment and Plan Assessment: Assessment #1 abdominal discomfort related to small bowel obstruction #2 systolic murmur related to aortic stenosis. Plan #1 from the cardiovascular standpoint of view, the patient can proceed with the surgery #2 we will continue following up with her. Thank you for allowing us participate in her care
[2017-06-26 11:18] LABS: Glucose,Whole Blood 181 mg/dL (75-99)
[2017-06-26 13:48] VITALS: BMI 20.1
--- NOTE | 2017-06-26 15:20 | P.HPADDEND ---
H&P Addendum H&P Addendum Date: 06/26/17 Benefits and risks of surgical intervention described in detail. Patient wishes to proceed with exploratory laparotomy. Possible small bowel resection described.
[2017-06-26] MEDS ORDERED: IV FLUID CONTINUATION 1,000 ML IV ONE (15:34)
[2017-06-26 16:02] LABS: Glucose,Whole Blood 161 mg/dL (75-99)
[2017-06-26] MEDS ORDERED: fentaNYL (PF) 50 MCG/ML 2 ML AMP IVP ONE (16:45)
[2017-06-26] MEDS ORDERED: MIDAZOLAM 2 MG/2 ML VIAL IVP ONE (16:45)
[2017-06-26] MEDS ORDERED: SODIUM CHLORIDE 0.9% EPIDURAL PRN (17:03)
[2017-06-26] MEDS ORDERED: NALOXONE 0.4 MG/ML 1 ML VIAL IV PRN ×2 (17:03→20:27)
[2017-06-26] MEDS ORDERED: diphenhydrAMINE 50 MG/ML 1 ML VIAL IVP PRN (17:03)
[2017-06-26] MEDS ORDERED: BUPIVACAINE 0.5% EPIDURAL PRN (17:03)
[2017-06-26] MEDS ORDERED: HYDROMORPHONE EPIDURAL PRN (17:03)
[2017-06-26] MEDS ORDERED: LIDOCAINE 1% INJ 10MG/ML (20 ML MDV) ONE (17:16)
[2017-06-26] MEDS ORDERED: PHENYLEPHRINE-0.9% NACL SYG 1 MG/10 ML SYRINGE ONE (17:16)
[2017-06-26] MEDS ORDERED: PROPOFOL 10 MG/ML 20 ML VIAL IV ONE (17:16)
[2017-06-26] MEDS ORDERED: ePHEDrine SULFATE/0.9% NACL/PF 50 MG/5 ML SYRINGE IV ONE (17:16)
[2017-06-26] MEDS ORDERED: fentaNYL (PF) 50 MCG/ML 2 ML AMP ONE (17:16)
[2017-06-26] MEDS ORDERED: SUCCINYLCHOLINE CHLORIDE 100 MG/5 ML SYR IV ONE (17:16)
[2017-06-26] MEDS ORDERED: NEOSTIGMINE 1 MG/ML 10 ML VIAL ONE (17:16)
[2017-06-26] MEDS ORDERED: GLYCOPYRROLATE 0.2 MG/ML 2 ML VIAL ONE (17:16)
[2017-06-26] MEDS ORDERED: ROCURONIUM BROMIDE 10 MG/ML 10 ML VIAL IV ONE (17:16)
--- NOTE | 2017-06-26 17:38 | PN ---
PROGRESS NOTE DATE OF SERVICE: 06/26/17. PRESENT COMPLAINT: Bowel obstruction. INTERVAL HISTORY: The patient presents with small bowel obstruction, still having some abdominal pain. Has not passed any flatus. Abdomen is distended. Saw this patient. Family is at the bedside. Awaiting surgery. The patient does get about with a walker. Has no cardiac symptoms. Does not need any further cardiac workup. This was discussed with the patient and family at the bedside. They understand some limited risk with surgery. REVIEW OF SYSTEMS: Done for constitutional, cardiovascular, GI, pulmonary; relevant findings as above. CURRENT MEDICATIONS: Reviewed and include IV fluids. PHYSICAL EXAMINATION: Temperature 97.7, pulse 57, respiration 16, blood pressure 105/58, pulse ox 94% on room air. GENERAL APPEARANCE: Lying in bed, awake. EYES: Pupils equal. Conjunctivae normal. HEENT: External appearance of nose and ears normal. Oral cavity normal. NECK: JVD not raised. Mass not palpable. RESPIRATORY: Effort normal, lungs are clear. CARDIOVASCULAR: First and second sounds normal. No edema. ABDOMEN: Mild tenderness, distended, soft. Hyperactive bowel sounds. PSYCHIATRY: Alert and oriented x3. Mood and affect normal. INVESTIGATIONS: White count 4.8, potassium 4.7. Accu-Cheks noted. Albumin 2.8. ASSESSMENT: 1. Acute distal small bowel obstruction, slow to respond due for surgery this afternoon. 2. Moderate to large hiatal hernia with some abdominal twisting over the diaphragm. 3. Chronic L1 compression fracture, could be possibly from osteoporosis. 4. Primary osteoarthritis multiple joints bilateral. 5. Diabetes mellitus type 2, chronically on insulin. 6. Chronic seizure disorder. 7. Hypothyroidism. 8. History of colon cancer with partial bowel obstruction. 9. Hypoalbuminemia as an acute phase reactant. PLAN: I had a lengthy talk with the patient's family at the bedside. Questions were answered. From my standpoint no further testing to be done. Given patient limited exercise tolerance, there is a slightly higher risk, but otherwise patient is medically stable. Questions were answered. The patient is mentally more prepared to proceed for surgery. MMODL / IJN: [id number] /
[2017-06-26] MEDS ORDERED: SODIUM CHLORIDE 0.9% 50 ML with ceFAZolin 2,000 MG IV ONE ×2 (17:43)
--- NOTE | 2017-06-26 19:50 | P.PCN ---
Date of Procedure: 06/26/17 Preoperative Diagnosis: Small bowel obstruction, abdominal ascites, hiatal hernia Postoperative Diagnosis: Same, radiation enteritis, complete small bowel obstruction at mid ileum, gastric volvulus mesenteric axial rotation, umbilical hernia 2 cm reducible Procedure(s) Performed: 1. Exploratory laparotomy 2. Extensive lysis of adhesions 3. Small bowel resection mid ileum with primary anastomosis 1 4. Reduction of gastric volvulus 5. Peritoneal lavage 3 L 6. Intraoperative placement gastric tube 7. Placement of PREVENA 20-cm wound VAC 8. Open initial umbilical hernia , 2-cm, repair without mesh Anesthesia: GETA, epidural Surgeon: Minerva Lua Estimated Blood Loss (ml): 100 Pathology: other (Small bowel resection) Condition: stable Disposition: floor Operative Findings: 1. 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 Chronic small bowel obstruction with complete collapse of lumen at mid ileum requiring resection 3. Primary anastomosis made with 60 mm purple Covidien staple load 4. Small bowel or enteric content consistent with thick paste evacuated from small bowel also consistent with chronic bowel obstruction 5. Reduction of the mesial enteric axial gastric volvulus with placement of nasogastric tube 6. Appendix present 7. Severe constipation involving the entire colon with concrete stools 8. Redundant transverse colon to pelvis 9. Umbilical hernia reducible, repaired 10. Contaminated case requiring prolonged antibiotics 11. Skin cleansed with dilute solution peroxide with skin peewee avoided and placement of PREVENA wound VAC
[2017-06-26 20:02] LABS: Glucose,Whole Blood 295 mg/dL (75-99)
[2017-06-26] MEDS ORDERED: INSULIN ASPART 100 UNIT/ML 1 ML 10 ML VIAL SQ ONE (20:07)
[2017-06-26] MEDS ORDERED: SODIUM CHLORIDE 0.9% 1,000 ML IV ONE ×2 (20:50→21:53)
[2017-06-26] MEDS: BUPIVACAINE 0.5% EPIDURAL PRN (21:57)
[2017-06-26] MEDS: SODIUM CHLORIDE 0.9% EPIDURAL PRN (21:57)
[2017-06-26] MEDS: HYDROMORPHONE EPIDURAL PRN (21:57)
[2017-06-27] MEDS: HEPARIN SODIUM,PORCINE 5,000 UNIT/ML 1 ML VIAL SQ SCH ×3 (00:18→21:14)
[2017-06-27] MEDS: ceFAZolin IN SWFI 2 GM/20 ML SYRINGE IVP SCH ×3 (00:19→16:39)
[2017-06-27] MEDS: INSULIN DETEMIR 100 UNIT/ML 10 ML VIAL SQ SCH ×2 (00:20→21:15)
[2017-06-27] MEDS: metroNIDAZOLE-NS PMX 500 MG in SALINE 1 100ML.BAG IVPB SCH ×3 (00:20→16:39)
[2017-06-27] MEDS: INSULIN ASPART 100 UNIT/ML 1 ML 10 ML VIAL SQ SCH ×4 (00:32→18:09)
[2017-06-27 00:36] LABS: Glucose,Whole Blood 184 mg/dL (75-99)
[2017-06-27] MEDS: levETIRAcetam IV 500 MG in SODIUM CHLORIDE 0.9% 100 ML IVPB SCH ×3 (04:12→21:15)
[2017-06-27] MEDS: LACTATED RINGERS 1,000 ML IV SCH (05:52)
--- NOTE | 2017-06-27 06:01 | P.PN ---
Progress Note - Text Anesthesia POD 1. Status Post exploratory laparotomy, small bowel resection, and lysis of adhesions under general endotracheal anesthesia with an epidrual catheter placed at [T 11] for post surgical pain releif. VAS ([1, 3]) with Bupivicaine 0.1 % and Dilaudid 10 mcg / cc running at 4 cc / hr. Lower extremity strength ([4]/4). Minimal sedation. Site looks OK.
[2017-06-27 06:08] LABS: Glucose,Whole Blood 101 mg/dL (75-99)
[2017-06-27 07:52] LABS: Calcium 7.7 mg/dL (8.4-10.2); Phosphorus 3.9 mg/dL (2.5-4.5); Potassium 4.4 mmol/L (3.5-5.1)
[2017-06-27 08:17] LABS: Basophils % (A) 0 %; Eosinophils % (A) 0 %; HCT 36.3 % (34.0-46.0); HGB 11.2 gm/dL (11.4-16.0); Hypochromasia Slight; Lymphocytes # (A) 0.5 k/uL (1.0-4.8); Lymphocytes % (A) 11 %; MCH 27.3 pg (25.0-35.0); Mean Platelet Volume 8.7; Monocytes # (A) 0.3 k/uL (0-1.0); Monocytes % (A) 6 %; Neutrophils # (A) 4.1 k/uL (1.3-7.7); Neutrophils % (A) 82 %; Platelet Count 156 k/uL (150-450); RBC 4.12 m/uL (3.80-5.40); RDW 14.6 % (11.5-15.5); WBC 5.1 k/uL (3.8-10.6)
[2017-06-27] MEDS: PANTOPRAZOLE 40 MG/10 ML VIAL IV SCH (09:04)
[2017-06-27] MEDS: MAGNESIUM SULFATE-D5W PMX 1 GM in DEXTROSE/WATER 1 100ML.BAG IVPB SCH ×4 (09:30→13:02)
[2017-06-27] MEDS ORDERED: SODIUM CHLORIDE 0.9% 200 ML IV ONE (09:49)
--- NOTE | 2017-06-27 10:40 | P.PN ---
Subjective Progress Note Date: 06/27/17 Principal diagnosis: hypotension This is a pleasant 82-year-old female patient who does not see any restrike hammer operator with a past medical history significant for diabetes presented to the hospital complaining of abdominal discomfort started about 4-5 days ago. The patient was not passing any gas is for about 5 days. She was having increasing abdominal discomfort for and lately nausea and vomiting. She underwent a computed tomography scan of the abdomen and that showed small bowel obstruction and the patient was seen and evaluated by general surgeon and she is going to have surgery later on today. From the cardiac vascular standpoint overview, she denies having any chest pain or discomfort or difficulty breathing or feeling of heart racing or fluttering or dizziness or lightheadedness or syncope. No documented history of coronary artery disease or congestive heart failure or cardiac arrhythmia. As a mentioned earlier never seen and evaluated by restrike hammer operator. The EKG showed sinus rhythm with LBBB. On physical examination she does have a systolic murmur at the right upper sternal border consistent with mild to moderate or moderate aortic stenosis. The patient did have surgery yesterday and she has done very well. She denies any chest pain or chest discomfort today. The blood pressure is in the 90s and she is not on any blood pressure medications. I am going to give the patient a bolus of 200 mL of 0.9 normal saline. Objective - Vital Signs Vital signs: Vital Signs Temp 97.4 F L 06/27/17 07:45 Pulse 88 06/27/17 07:45 Resp 15 06/27/17 07:45 BP 95/54 06/27/17 07:45 Pulse Ox 95 06/27/17 07:45 Intake & Output 06/26/17 06/27/17 06/27/17 18:59 06:59 18:59 Intake Total 1250 1200 Output Total 785 Balance 1250 415 Weight 56.699 kg 56.699 kg Intake: IV 1250 1200 Oral 0 Output: Urine 685 Estimated Blood Loss 100 Other: Voiding Method Indwelling Catheter # Voids 1 - Constitutional General appearance: Present: no acute distress - Respiratory Respiratory: bilateral: CTA - Cardiovascular Rhythm: regular Heart sounds: normal: S1, S2 Abnormal Heart Sounds: Present: systolic murmur - Labs CBC & Chem 7: 06/27/17 06:54 06/27/17 06:54 Labs: Abnormal Lab Results - Last 24 Hours (Table) 06/26/17 06/26/17 06/26/17 Range/Units 11:15 15:58 19:58 Hgb (11.4-16.0) gm/dL Lymphocytes # (1.0-4.8) k/uL Glucose (74-99) mg/dL POC Glucose (mg/dL) 181 H 161 H 295 H (75-99) mg/dL Calcium (8.4-10.2) mg/dL Magnesium (1.6-2.3) mg/dL 06/27/17 06/27/17 06/27/17 Range/Units 00:17 05:48 06:54 Hgb (11.4-16.0) gm/dL Lymphocytes # (1.0-4.8) k/uL Glucose 101 H (74-99) mg/dL POC Glucose (mg/dL) 184 H 101 H (75-99) mg/dL Calcium 7.7 L (8.4-10.2) mg/dL Magnesium 1.0 L* (1.6-2.3) mg/dL 06/27/17 Range/Units 06:54 Hgb 11.2 L (11.4-16.0) gm/dL Lymphocytes # 0.5 L (1.0-4.8) k/uL Glucose (74-99) mg/dL POC Glucose (mg/dL) (75-99) mg/dL Calcium (8.4-10.2) mg/dL Magnesium (1.6-2.3) mg/dL Microbiology - Last 24 Hours (Table) 06/26/17 04:55 Urine Culture - Preliminary Urine,Clean Catch Assessment and Plan Assessment: Assessment #1 status post small bowel surgery for small bowel obstruction #2 systolic murmur related to aortic stenosis. #3 hypotension Plan #1 keep the patient a bolus of 200 mm of 0.9 normal saline #2 will follow-up with the patient on when necessary case. Thank you for allowing us participate in her care
[2017-06-27 11:51] LABS: Glucose,Whole Blood 71 mg/dL (75-99)
[2017-06-27] MEDS: DEXTROSE 5%-0.45% NACL 1,000 ML IV SCH (12:45)
[2017-06-27] MEDS ORDERED: SODIUM CHLORIDE 0.9% 2,000 ML IV ONE (15:27)
--- NOTE | 2017-06-27 15:37 | P.PN ---
Subjective Progress Note Date: 06/27/17 Principal diagnosis: Bowel obstruction The patient is a 82-year-old female status post lysis of adhesions and small bowel obstruction from bowel obstruction. She is postoperative day one. She feels quite well. Her urine output has been low secondary to dehydration. Her pain is well-controlled. No reports of nausea and vomiting. She reports dry mouth. She has an epidural. Objective - Vital Signs Vital signs: Vital Signs Temp 98.4 F 06/27/17 12:49 Pulse 82 06/27/17 12:49 Resp 16 06/27/17 12:49 BP 97/56 06/27/17 12:49 Pulse Ox 96 06/27/17 12:49 Intake & Output 06/26/17 06/27/17 06/27/17 18:59 06:59 18:59 Intake Total 1250 1200 800 Output Total 785 110 Balance 1250 415 690 Weight 56.699 kg 56.699 kg Intake: IV 1250 1200 800 Dextrose 5%-0.45% NaCl 1, 200 000 ml @ 100 mls/hr IV . Q10H [facility] Rx#:[id number] Lactated Ringers 1,000 ml 600 @ 100 mls/hr IV .Q10H [facility] Rx#:[id number] Oral 0 Output: Urine 685 110 Uretheral (Arreguin) 110 Estimated Blood Loss 100 Other: Voiding Method Indwelling Catheter Indwelling Catheter # Voids 1 - Exam GENERAL: Well developed and in no acute distress. Pleasant. HEENT: No sclera icterus. Extraocular movements grossly intact. Moist buccal mucosa. Head is atraumatic, normocephalic. Hears conversational speech. No nasal drainage. NG tube with thick brown succunt. NECK: Supple without lymphadenopathy. CHEST: Non-labored respirations and equal bilateral excursions. CARDIOVASCULAR: Regular rate and rhythm. Palpable 2+ radial pulses. ABDOMEN: Soft, nontender. Nondistended. Dressing clean, dry, and intact with Prevena wound VAC. MUSCULOSKELETAL: No clubbing, cyanosis or edema. NEUROLOGIC: No focal or lateralizing signs. PSYCH: Appropriate affect. Alert and oriented to person, place and time. SKIN: Good skin turgor. Well perfused. - Labs CBC & Chem 7: 06/27/17 06:54 06/27/17 06:54 Labs: Abnormal Lab Results - Last 24 Hours (Table) 06/26/17 06/26/17 06/27/17 Range/Units 15:58 19:58 00:17 Hgb (11.4-16.0) gm/dL Lymphocytes # (1.0-4.8) k/uL Glucose (74-99) mg/dL POC Glucose (mg/dL) 161 H 295 H 184 H (75-99) mg/dL Calcium (8.4-10.2) mg/dL Magnesium (1.6-2.3) mg/dL 06/27/17 06/27/17 06/27/17 Range/Units 05:48 06:54 06:54 Hgb 11.2 L (11.4-16.0) gm/dL Lymphocytes # 0.5 L (1.0-4.8) k/uL Glucose 101 H (74-99) mg/dL POC Glucose (mg/dL) 101 H (75-99) mg/dL Calcium 7.7 L (8.4-10.2) mg/dL Magnesium 1.0 L* (1.6-2.3) mg/dL 06/27/17 Range/Units 11:50 Hgb (11.4-16.0) gm/dL Lymphocytes # (1.0-4.8) k/uL Glucose (74-99) mg/dL POC Glucose (mg/dL) 71 L (75-99) mg/dL Calcium (8.4-10.2) mg/dL Magnesium (1.6-2.3) mg/dL Microbiology - Last 24 Hours (Table) 06/26/17 04:55 Urine Culture - Final Urine,Clean Catch Assessment and Plan (1) Pyuria Current Visit: Yes Status: Acute Code(s): N39.0 - URINARY TRACT INFECTION, SITE NOT SPECIFIED SNOMED Code(s): 4401208 (2) Gastric volvulus Current Visit: Yes Status: Acute Code(s): K31.89 - OTHER DISEASES OF STOMACH AND DUODENUM SNOMED Code(s): 27198142 (3) Diverticulosis Current Visit: Yes Status: Acute Code(s): K57.90 - DVRTCLOS OF INTEST, PART UNSP, W/O PERF OR ABSCESS W/O BLEED SNOMED Code(s): 35564601 (4) History of colon cancer Current Visit: Yes Status: Acute Code(s): Z85.038 - PERSONAL HISTORY OF MALIGNANT NEOPLASM OF LARGE INTESTINE SNOMED Code(s): 809570846 (5) Nausea & vomiting Current Visit: Yes Status: Acute Code(s): R11.2 - NAUSEA WITH VOMITING, UNSPECIFIED SNOMED Code(s): 34511510 (6) Hypothyroidism Current Visit: Yes Status: Acute Code(s): E03.9 - HYPOTHYROIDISM, UNSPECIFIED SNOMED Code(s): 40584085 (7) Seizure disorder Current Visit: Yes Status: Acute Code(s): G40.909 - EPILEPSY, UNSP, NOT INTRACTABLE, WITHOUT STATUS EPILEPTICUS SNOMED Code(s): 933842953 (8) Poorly controlled type 2 diabetes mellitus Current Visit: Yes Status: Acute Code(s): E11.65 - TYPE 2 DIABETES MELLITUS WITH HYPERGLYCEMIA SNOMED Code(s): 08919777 (9) SBO (small bowel obstruction) Current Visit: Yes Status: Acute Code(s): K56.609 - UNSP INTESTNL OBST, UNSP TO PARTIAL VERSUS COMPLETE OBST SNOMED Code(s): 275323581 (10) Dehydration Current Visit: No Status: Acute Code(s): E86.0 - DEHYDRATION SNOMED Code(s ): 26414327 Plan: 1. IV fluid hydration 2 L over 2 hours. 2. Flush nasogastric tube every shift 60 mL normal saline 3. May have ice chips. May have popsicles. 4. Continue IV antibiotics for contaminated case. 5. Likely hospitalization through the weekend.
[2017-06-27] MEDS ORDERED: DEXTROSE 50%-WATER 50 ML SYRINGE IVP ONE (18:08)
[2017-06-27] MEDS ORDERED: DEXTROSE 50%-WATER 50 ML SYRINGE IVP STA (18:09)
[2017-06-27 18:10] LABS: Glucose,Whole Blood 57 mg/dL (75-99)
[2017-06-27 18:10] LABS: Glucose,Whole Blood 49 mg/dL (75-99)
[2017-06-27 18:36] LABS: Glucose,Whole Blood 92 mg/dL (75-99)
[2017-06-27 19:01] LABS: Glucose,Whole Blood 115 mg/dL (75-99)
--- NOTE | 2017-06-27 22:48 | PN ---
PROGRESS NOTE DATE OF SERVICE: June 27, 2017. PRESENTING COMPLAINT: Bowel obstruction. INTERVAL HISTORY: The patient is status post small bowel obstruction, status post surgery for the same. The patient has a wound VAC in place. The patient also found to have some radiation enteritis and lysis of adhesions also carried out. The patient has got a NG tube in place. Some abdominal pain is present, not passing any flatus. The patient did have end-to-end anastomosis. REVIEW OF SYSTEMS: Done for constitutional, cardiovascular, GI, pulmonary; relevant findings as above. CURRENT MEDICATIONS: Reviewed that include IV cefazolin. Patient is also on IV Flagyl and IV Keppra. PHYSICAL EXAMINATION: Temperature 98.4, pulse 82, respiration 16, blood pressure 97/56, pulse ox 96% on 2 L. GENERAL APPEARANCE: Lying in bed, somewhat tired-appearing. Eyes pupil equal, Conjunctivae normal. HEENT: External appearance of nose and ears normal. Oral cavity normal. NG tube in place. Neck JVD unable to assess. Mass not palpable. Respiratory effort normal. Lungs fair entry. Cardiovascular 1st and second sounds normal. No edema. Abdomen tender. Bowel sounds sluggish. Wound VAC in place. Psychiatry: Alert and oriented x3. Mood and affect is normal. INVESTIGATIONS: White count 5.1, hemoglobin 11.2 Accu-Cheks noted 101, 71. Magnesium 1. ASSESSMENT: 1. Acute distal small bowel obstruction status post resection with end-to-end anastomosis. 2. Moderate to large hiatal hernia. 3. Chronic L1 compression fracture, possibly from osteoporosis. 4. Primary osteoarthritis of multiple joints bilateral. 5. Diabetes mellitus type 2, uncontrolled with hypoglycemia. 6. Chronic seizure disorder. 7. Hypothyroidism. 8. History of colon cancer. 9. Hypoalbuminemia as an acute phase reactant. PLAN: Because of hypoglycemia I told the nurse to change the fluids to D5 0.45. Other medication and treatment plan is to continue. Keep a close eye on patient's Accu- Cheks. Follow electrolytes closely. MMODL / IJN: [id number] /
[2017-06-27 23:09] LABS: Glucose,Whole Blood 80 mg/dL (75-99)
[2017-06-28] MEDS: LEVOTHYROXINE IVP 100 MCG/5 ML VIAL IV SCH ×2 (00:01)
[2017-06-28] MEDS: DEXTROSE 5%-0.45% NACL 1,000 ML IV SCH ×3 (00:02→18:14)
[2017-06-28] MEDS: metroNIDAZOLE-NS PMX 500 MG in SALINE 1 100ML.BAG IVPB SCH ×4 (00:02→23:52)
[2017-06-28] MEDS: ceFAZolin IN SWFI 2 GM/20 ML SYRINGE IVP SCH ×4 (00:02→23:52)
[2017-06-28 00:03] LABS: Glucose,Whole Blood 92 mg/dL (75-99)
[2017-06-28] MEDS: INSULIN ASPART 100 UNIT/ML 1 ML 10 ML VIAL SQ SCH ×5 (00:03→23:51)
[2017-06-28 07:07] LABS: Glucose,Whole Blood 147 mg/dL (75-99)
[2017-06-28 07:20] LABS: Basophils % (A) 0 %; Eosinophils # (A) 0.1 k/uL (0-0.7); Eosinophils % (A) 1 %; HCT 34.8 % (34.0-46.0); HGB 10.9 gm/dL (11.4-16.0); Lymphocytes # (A) 0.9 k/uL (1.0-4.8); Lymphocytes % (A) 12 %; MCH 27.2 pg (25.0-35.0); MCHC 31.3 g/dL (31.0-37.0); MCV 86.9 fL (80.0-100.0); Mean Platelet Volume 8.5; Monocytes # (A) 0.3 k/uL (0-1.0); Monocytes % (A) 4 %; Neutrophils # (A) 6.5 k/uL (1.3-7.7); Neutrophils % (A) 83 %; Platelet Count 163 k/uL (150-450); RBC 4.01 m/uL (3.80-5.40); RDW 14.8 % (11.5-15.5); WBC 7.9 k/uL (3.8-10.6)
[2017-06-28 07:54] LABS: Calcium 7.2 mg/dL (8.4-10.2); Magnesium 1.9 mg/dL (1.6-2.3); Potassium 4.2 mmol/L (3.5-5.1)
[2017-06-28] MEDS: levETIRAcetam IV 500 MG in SODIUM CHLORIDE 0.9% 100 ML IVPB SCH ×2 (08:36→20:55)
[2017-06-28] MEDS: HEPARIN SODIUM,PORCINE 5,000 UNIT/ML 1 ML VIAL SQ SCH ×2 (08:44→20:54)
[2017-06-28] MEDS: PANTOPRAZOLE 40 MG/10 ML VIAL IV SCH (08:44)
--- NOTE | 2017-06-28 09:39 | P.PN ---
Subjective Progress Note Date: 06/28/17 Principal diagnosis: Bowel obstruction Patient doing well today. Denies pain. White blood cell count 7.9 hemoglobin 10.9. No flatus. No nausea or vomiting. Nasogastric tube output is bilious. Urine output is satisfactory although on the low side. Objective - Vital Signs Vital signs: Vital Signs Temp 98 F 06/28/17 07:00 Pulse 71 06/28/17 07:00 Resp 18 06/28/17 07:00 BP 109/59 06/28/17 07:00 Pulse Ox 97 06/28/17 07:00 Intake & Output 06/27/17 06/28/17 06/28/17 18:59 06:59 18:59 Intake Total 800 2280 Output Total 230 150 Balance 570 2130 Intake: IV 800 Dextrose 5%-0.45% NaCl 1, 200 000 ml @ 100 mls/hr IV . Q10H [facility] Rx#:[id number] Lactated Ringers 1,000 ml 600 @ 100 mls/hr IV .Q10H [facility] Rx#:[id number] Intake, IV Titration 2280 Amount Dextrose 5%-0.45% NaCl 1, 1600 000 ml @ 100 mls/hr IV . Q10H [facility] Rx#:[id number] Sodium Chloride 0.9% 1, 80 000 ml As IV [facility] Rx#:[id number] Sodium Chloride 0.9% 1, 300 000 ml As IV [facility] Rx#:[id number] levETIRAcetam IV 500 mg 200 In Sodium Chloride 0.9% 100 ml @ 400 mls/hr IVPB Q12HR [facility] Rx#:[id number] metroNIDAZOLE-NS PMX 500 100 mg In Saline 1 100ml.bag @ 100 mls/hr IVPB Q8HR [facility] Rx#:[id number] Output: Gastric Drainage 150 Urine 230 Uretheral (Arreguin) 230 Other: Voiding Method Indwelling Catheter Indwelling Catheter Indwelling Catheter - Exam Abdomen: Soft, nondistended, dressing intact, minimal tenderness - Labs CBC & Chem 7: 06/28/17 06:43 06/28/17 06:43 Labs: Abnormal Lab Results - Last 24 Hours (Table) 06/27/17 06/27/17 06/27/17 Range/Units 11:50 18:03 18:06 Hgb (11.4-16.0) gm/dL Lymphocytes # (1.0-4.8) k/uL Glucose (74-99) mg/dL POC Glucose (mg/dL) 71 L 49 L 57 L (75-99) mg/dL Calcium (8.4-10.2) mg/dL 06/27/17 06/28/17 06/28/17 Range/Units 18:59 06:43 06:43 Hgb 10.9 L (11.4-16.0) gm/dL Lymphocytes # 0.9 L (1.0-4.8) k/uL Glucose 178 H (74-99) mg/dL POC Glucose (mg/dL) 115 H (75-99) mg/dL Calcium 7.2 L (8.4-10.2) mg/dL 06/28/17 Range/Units 06:47 Hgb (11.4-16.0) gm/dL Lymphocytes # (1.0-4.8) k/uL Glucose (74-99) mg/dL POC Glucose (mg/dL) 147 H (75-99) mg/dL Calcium (8.4-10.2) mg/dL Microbiology - Last 24 Hours (Table) 06/26/17 04:55 Urine Culture - Final Urine,Clean Catch Assessment and Plan (1) SBO (small bowel obstruction) Narrative/Plan: Continue nasogastric tube to low intermittent suction. Increase activity and will consult with physical therapy. Recheck labs tomorrow. Continue Arreguin for now given the marginal urine output. Current Visit: Yes Status: Acute Code(s): K56.609 - UNSP INTESTNL OBST, UNSP TO PARTIAL VERSUS COMPLETE OBST SNOMED Code(s): 081671005
[2017-06-28 11:42] LABS: Glucose,Whole Blood 273 mg/dL (75-99)
[2017-06-28 17:45] LABS: Glucose,Whole Blood 299 mg/dL (75-99)
[2017-06-28 18:31] LABS: Glucose,Whole Blood 269 mg/dL (75-99)
--- NOTE | 2017-06-28 20:23 | P.PN ---
Progress Note - Text 06/28 2017 82-year-old female status post exploratory lap. Patient has an epidural catheter for postop pain control with the solution running at 4 mL an hour. Patient has a VAS of 0, no complaints of motor or sensory deficits patient has an NG tube in place. Plan to continue epidural infusion.
[2017-06-28] MEDS: INSULIN DETEMIR 100 UNIT/ML 10 ML VIAL SQ SCH (20:55)
--- NOTE | 2017-06-28 22:58 | PN ---
PROGRESS NOTE DATE OF SERVICE: June 28, 2017. PRESENTING COMPLAINT: Bowel obstruction. INTERVAL HISTORY: The patient had bowel small bowel obstruction, status post surgery for the same. Remains to have a wound VAC in place. Has not passed any flatus. NG tube remains in place. Pain is controlled. Lying in bed. REVIEW OF SYSTEMS: Done for constitutional, cardiovascular, GI, pulmonary, relevant findings as above. CURRENT MEDICATIONS: Reviewed that include IV Flagyl and IV Cephazolin. EXAMINATION: Temp 97.4, pulse 67, respiratory rate 16, blood pressure 98/61, pulse ox 95% on room air. General appearance: Lying in bed, awake. Eyes pupils are equal. Conjunctivae normal. HEENT external appearance of nose and ears normal. Oral cavity normal. NG tube in place. Neck: JVD not raised. Mass not palpable. Respiratory effort normal. Lungs fair entry. Cardiovascular 1st and 2nd sounds normal. No edema. ABDOMEN: Soft, tender. Bowel sounds sluggish. Wound VAC in place. Psychiatry: Alert and oriented times three. Mood and affect normal. INVESTIGATIONS: White count 7.9, hemoglobin 10.9, potassium 4.2. Accu-Cheks noted. ASSESSMENT: 1. Acute distal small bowel obstruction status post resection with end-to-end anastomosis. 2. Moderate to large hiatal hernia. 3. Chronic L1 compression fracture, possibly from osteoporosis. 4. Primary osteoarthritis of multiple joints bilateral. 5. Diabetes mellitus type 2 uncontrolled with hypoglycemia and hyperglycemia. 6. Chronic seizure disorder. 7. Hypothyroidism. 8. History of colon cancer. 9. Hypoalbuminemia as an acute phase reactant. PLAN: Continue current medication and treatment plan. Keep a close eye on patient's sugars. Follow. MMODL / IJN: [id number] /
[2017-06-28 23:47] LABS: Glucose,Whole Blood 262 mg/dL (75-99)
[2017-06-29] MEDS: BUPIVACAINE 0.5% EPIDURAL PRN (00:57)
[2017-06-29] MEDS: HYDROMORPHONE EPIDURAL PRN (00:57)
[2017-06-29] MEDS: SODIUM CHLORIDE 0.9% EPIDURAL PRN (00:57)
[2017-06-29] MEDS: DEXTROSE 5%-0.45% NACL 1,000 ML IV SCH ×2 (04:51→20:28)
[2017-06-29 05:13] LABS: Glucose,Whole Blood 191 mg/dL (75-99)
[2017-06-29] MEDS: INSULIN ASPART 100 UNIT/ML 1 ML 10 ML VIAL SQ SCH ×4 (05:21→23:25)
[2017-06-29 06:55] LABS: Basophils % (A) 0 %; Eosinophils # (A) 0.1 k/uL (0-0.7); Eosinophils % (A) 1 %; HCT 33.7 % (34.0-46.0); HGB 10.8 gm/dL (11.4-16.0); Lymphocytes # (A) 0.9 k/uL (1.0-4.8); Lymphocytes % (A) 10 %; MCH 27.8 pg (25.0-35.0); MCHC 31.9 g/dL (31.0-37.0); MCV 86.9 fL (80.0-100.0); Mean Platelet Volume 8.5; Monocytes # (A) 0.2 k/uL (0-1.0); Monocytes % (A) 2 %; Neutrophils # (A) 7.5 k/uL (1.3-7.7); Neutrophils % (A) 86 %; Platelet Count 180 k/uL (150-450); RBC 3.88 m/uL (3.80-5.40); RDW 14.7 % (11.5-15.5); WBC 8.8 k/uL (3.8-10.6)
[2017-06-29] MEDS: PANTOPRAZOLE 40 MG/10 ML VIAL IV SCH (07:57)
[2017-06-29] MEDS: LEVOTHYROXINE IVP 100 MCG/5 ML VIAL IV SCH (07:57)
[2017-06-29] MEDS: HEPARIN SODIUM,PORCINE 5,000 UNIT/ML 1 ML VIAL SQ SCH ×2 (07:57→20:32)
[2017-06-29] MEDS: levETIRAcetam IV 500 MG in SODIUM CHLORIDE 0.9% 100 ML IVPB SCH ×2 (07:58→20:33)
[2017-06-29] MEDS: ceFAZolin IN SWFI 2 GM/20 ML SYRINGE IVP SCH ×3 (07:58→23:25)
[2017-06-29] MEDS: metroNIDAZOLE-NS PMX 500 MG in SALINE 1 100ML.BAG IVPB SCH ×3 (08:01→23:25)
[2017-06-29 08:06] LABS: Anion Gap 8 mmol/L; Blood Urea Nitrogen 11 mg/dL (7-17); Calcium 7.3 mg/dL (8.4-10.2); Carbon Dioxide 26 mmol/L (22-30); Chloride 103 mmol/L (98-107); Glucose 140 mg/dL (74-99); Magnesium 1.9 mg/dL (1.6-2.3); Potassium 3.9 mmol/L (3.5-5.1); Sodium 137 mmol/L (137-145)
--- NOTE | 2017-06-29 10:10 | P.PN ---
Subjective Progress Note Date: 06/29/17 Principal diagnosis: Bowel obstruction Patient doing well today. Minimal pain. No bowel function. Nasogastric output decreased. Arreguin catheter with good urine output today. White blood cell count 8.8, hemoglobin 10.8. Objective - Vital Signs Vital signs: Vital Signs Temp 98.5 F 06/29/17 07:15 Pulse 73 06/29/17 07:15 Resp 16 06/29/17 07:15 BP 112/57 06/29/17 07:15 Pulse Ox 95 06/29/17 07:15 Intake & Output 06/28/17 06/29/17 06/29/17 18:59 06:59 18:59 Intake Total 800 800 Output Total 340 475 Balance 460 325 Intake: IV 800 Dextrose 5%-0.45% NaCl 1, 800 000 ml @ 100 mls/hr IV . Q10H [facility] Rx#:[id number] Intake, IV Titration 800 Amount Dextrose 5%-0.45% NaCl 1, 800 000 ml @ 100 mls/hr IV . Q10H [facility] Rx#:[id number] Output: Urine 340 475 Uretheral (Arreguin) 340 Other: Voiding Method Indwelling Catheter Indwelling Catheter Indwelling Catheter - Exam Abdomen: Soft, nondistended, dressing intact, minimal tenderness - Labs CBC & Chem 7: 06/29/17 06:11 06/29/17 06:11 Labs: Abnormal Lab Results - Last 24 Hours (Table) 06/28/17 06/28/17 06/28/17 Range/Units 11:41 17:42 18:29 Hgb (11.4-16.0) gm/dL Hct (34.0-46.0) % Lymphocytes # (1.0-4.8) k/uL Glucose (74-99) mg/dL POC Glucose (mg/dL) 273 H 299 H 269 H (75-99) mg/dL Calcium (8.4-10.2) mg/dL 06/28/17 06/29/17 06/29/17 Range/Units 23:43 05:09 06:11 Hgb (11.4-16.0) gm/dL Hct (34.0-46.0) % Lymphocytes # (1.0-4.8) k/uL Glucose 140 H (74-99) mg/dL POC Glucose (mg/dL) 262 H 191 H (75-99) mg/dL Calcium 7.3 L (8.4-10.2) mg/dL 06/29/17 Range/Units 06:11 Hgb 10.8 L (11.4-16.0) gm/dL Hct 33.7 L (34.0-46.0) % Lymphocytes # 0.9 L (1.0-4.8) k/uL Glucose (74-99) mg/dL POC Glucose (mg/dL) (75-99) mg/dL Calcium (8.4-10.2) mg/dL Assessment and Plan (1) SBO (small bowel obstruction) Narrative/Plan: We'll remove epidural and Arreguin catheter today. Increase activity levels. Keep NG tube for now. Current Visit: Yes Status: Acute Code(s): K56.609 - UNSP INTESTNL OBST, UNSP TO PARTIAL VERSUS COMPLETE OBST SNOMED Code(s): 276036511
[2017-06-29 12:05] LABS: Glucose,Whole Blood 86 mg/dL (75-99)
[2017-06-29 16:24] LABS: Glucose,Whole Blood 118 mg/dL (75-99)
[2017-06-29] MEDS: MORPHINE SULFATE 4 MG/ML SYRINGE IV PRN (16:30)
[2017-06-29] MEDS: ONDANSETRON 4 MG/2 ML VIAL IVP PRN (16:37)
[2017-06-29] MEDS: INSULIN DETEMIR 100 UNIT/ML 10 ML VIAL SQ SCH (20:33)
[2017-06-29 20:46] LABS: Glucose,Whole Blood 190 mg/dL (75-99)
--- NOTE | 2017-06-29 22:41 | PN ---
PROGRESS NOTE DATE OF SERVICE: 06/29/2017 PRESENTING COMPLAINT: Bowel obstruction. INTERVAL HISTORY: The patient had small bowel obstruction, status post surgery and got a wound VAC in place and an NG tube in place. Has not passed any flatus. Epidural was taken off today. No nausea, vomiting. REVIEW OF SYSTEMS: Done for constitutional, cardiovascular, GI, pulmonary; relevant findings as above. CURRENT MEDICATIONS: Reviewed that include IV fluids. PHYSICAL EXAMINATION: Temperature 98.5, pulse 93, respiration 16, blood pressure 112/57, pulse ox 95% on 2 L. GENERAL APPEARANCE: Lying in bed, awake. EYES: Pupils are equal. Conjunctivae normal. HEENT: External appearance of nose and ears normal. Oral cavity normal. NECK: JVD not raised. NG tube in place neck Mass not palpable. Respiratory effort . LUNGS: Fair entry. CARDIOVASCULAR: First and second sounds normal. No edema. ABDOMEN: Soft, tender. Bowel sounds sluggish. Wound VAC in place. PSYCHIATRY: Alert and oriented x3. Mood and affect normal. INVESTIGATIONS: White count 8.8, hemoglobin 10.8, potassium 3.9. ASSESSMENT: 1. Acute distal small bowel obstruction, status post resection with end-to-end anastomosis. 2. Moderate to large hiatal hernia. 3. Chronic L1 compression fracture, possible osteoporosis. 4. Primary osteoarthritis multiple joints bilateral. 5. Diabetes mellitus type 2, uncontrolled with hyperglycemia and hypoglycemia. 6. Chronic seizure disorder. 7. Hypothyroidism. 8. History of colon cancer. 9. Hypoalbuminemia as an acute phase reactant. PLAN: Continue medication and treatment plan. Care was discussed with the patient. Encouraged to be up in a chair and upright. MMODL / IJN: [id number] /
[2017-06-29 23:32] LABS: Glucose,Whole Blood 165 mg/dL (75-99)
[2017-06-30] MEDS: DEXTROSE 5%-0.45% NACL 1,000 ML IV SCH ×3 (04:43→22:24)
[2017-06-30 04:49] LABS: Glucose,Whole Blood 131 mg/dL (75-99)
[2017-06-30] MEDS: INSULIN ASPART 100 UNIT/ML 1 ML 10 ML VIAL SQ SCH ×3 (05:02→18:17)
[2017-06-30] MEDS: PANTOPRAZOLE 40 MG/10 ML VIAL IV SCH (08:18)
[2017-06-30] MEDS: metroNIDAZOLE-NS PMX 500 MG in SALINE 1 100ML.BAG IVPB SCH ×2 (08:18→16:13)
[2017-06-30] MEDS: ceFAZolin IN SWFI 2 GM/20 ML SYRINGE IVP SCH ×2 (08:18→16:13)
[2017-06-30] MEDS: HEPARIN SODIUM,PORCINE 5,000 UNIT/ML 1 ML VIAL SQ SCH ×2 (08:18→22:30)
[2017-06-30] MEDS: LEVOTHYROXINE IVP 100 MCG/5 ML VIAL IV SCH (08:18)
[2017-06-30 08:40] LABS: Basophils % (A) 0 %; Eosinophils # (A) 0.1 k/uL (0-0.7); Eosinophils % (A) 1 %; HCT 35.6 % (34.0-46.0); HGB 11.3 gm/dL (11.4-16.0); Lymphocytes # (A) 0.7 k/uL (1.0-4.8); Lymphocytes % (A) 7 %; MCH 27.3 pg (25.0-35.0); MCHC 31.8 g/dL (31.0-37.0); MCV 85.8 fL (80.0-100.0); Mean Platelet Volume 7.6; Monocytes # (A) 0.3 k/uL (0-1.0); Monocytes % (A) 3 %; Neutrophils # (A) 8.8 k/uL (1.3-7.7); Neutrophils % (A) 88 %; Platelet Count 213 k/uL (150-450); RBC 4.15 m/uL (3.80-5.40); RDW 14.5 % (11.5-15.5)
[2017-06-30] MEDS: levETIRAcetam IV 500 MG in SODIUM CHLORIDE 0.9% 100 ML IVPB SCH ×2 (09:25→22:28)
--- NOTE | 2017-06-30 11:19 | P.PN ---
Subjective Progress Note Date: 06/30/17 Principal diagnosis: Bowel obstruction The patient is a 82-year-old female status post lysis of adhesions and small bowel obstruction from bowel obstruction. She is postoperative day 4. Her pain is well-controlled. Nasogastric discontinued. No passage of flatus. She is moving around. Objective - Vital Signs Vital signs: Vital Signs Temp 98.2 F 06/30/17 07:45 Pulse 75 06/30/17 07:45 Resp 16 06/30/17 07:45 BP 151/65 06/30/17 07:45 Pulse Ox 91 L 06/30/17 07:45 Intake & Output 06/29/17 06/30/17 06/30/17 18:59 06:59 18:59 Intake Total 1290 1600 Output Total 925 200 Balance 365 1400 Intake: IV 800 800 Dextrose 5%-0.45% NaCl 1, 800 800 000 ml @ 100 mls/hr IV . Q10H [facility] Rx#:[id number] Intake, IV Titration 490 800 Amount Dextrose 5%-0.45% NaCl 1, 800 000 ml @ 100 mls/hr IV . Q10H [facility] Rx#:[id number] Sodium Chloride 0.9% 1, 240 000 ml As IV .[facility] Rx#:[id number] Sodium Chloride 0.9% 50 50 ml As IV .[facility] ONE with ceFAZolin 2,000 mg Rx#:[id number] levETIRAcetam IV 500 mg 100 In Sodium Chloride 0.9% 100 ml @ 400 mls/hr IVPB Q12HR [facility] Rx#:[id number] metroNIDAZOLE-NS PMX 500 100 mg In Saline 1 100ml.bag @ 100 mls/hr IVPB Q8HR [facility] Rx#:[id number] Output: Urine 925 Stool 200 Other: Voiding Method Indwelling Catheter Indwelling Catheter Bedside Commode # Voids 1 - Exam GENERAL: Well developed and in no acute distress. Pleasant. HEENT: No sclera icterus. Extraocular movements grossly intact. Moist buccal mucosa. Head is atraumatic, normocephalic. Hears conversational speech. NECK: Supple without lymphadenopathy. CHEST: Non-labored respirations and equal bilateral excursions. CARDIOVASCULAR: Regular rate and rhythm. Palpable 2+ radial pulses. ABDOMEN: Soft, nontender. Nondistended. Dressing clean, dry, and intact with Prevena wound VAC. MUSCULOSKELETAL: No clubbing, cyanosis or edema. NEUROLOGIC: No focal or lateralizing signs. PSYCH: Appropriate affect. Alert and oriented to person, place and time. SKIN: Good skin turgor. Well perfused. - Labs CBC & Chem 7: 06/30/17 08:12 06/29/17 06:11 Labs: Abnormal Lab Results - Last 24 Hours (Table) 06/29/17 06/29/17 06/29/17 Range/Units 15:58 20:40 23:21 Hgb (11.4-16.0) gm/dL Neutrophils # (1.3-7.7) k/uL Lymphocytes # (1.0-4.8) k/uL POC Glucose (mg/dL) 118 H 190 H 165 H (75-99) mg/dL 06/30/17 06/30/17 Range/Units 04:46 08:12 Hgb 11.3 L (11.4-16.0) gm/dL Neutrophils # 8.8 H (1.3-7.7) k/uL Lymphocytes # 0.7 L (1.0-4.8) k/uL POC Glucose (mg/dL) 131 H (75-99) mg/dL Assessment and Plan (1) Pyuria Current Visit: Yes Status: Acute Code(s): N39.0 - URINARY TRACT INFECTION, SITE NOT SPECIFIED SNOMED Code(s): 0890096 (2) Gastric volvulus Current Visit: Yes Status: Acute Code(s): K31.89 - OTHER DISEASES OF STOMACH AND DUODENUM SNOMED Code(s): 29956498 (3) Diverticulosis Current Visit: Yes Status: Acute Code(s): K57.90 - DVRTCLOS OF INTEST, PART UNSP, W/O PERF OR ABSCESS W/O BLEED SNOMED Code(s): 72099097 (4) History of colon cancer Current Visit: Yes Status: Acute Code(s): Z85.038 - PERSONAL HISTORY OF MALIGNANT NEOPLASM OF LARGE INTESTINE SNOMED Code(s): 330333089 (5) Nausea & vomiting Current Visit: Yes Status: Acute Code(s): R11.2 - NAUSEA WITH VOMITING, UNSPECIFIED SNOMED Code(s): 96057341 (6) Hypothyroidism Current Visit: Yes Status: Acute Code(s): E03.9 - HYPOTHYROIDISM, UNSPECIFIED SNOMED Code(s): 38204874 (7) Seizure disorder Current Visit: Yes Status: Acute Code(s): G40.909 - EPILEPSY, UNSP, NOT INTRACTABLE, WITHOUT STATUS EPILEPTICUS SNOMED Code(s): 971352937 (8) Poorly controlled type 2 diabetes mellitus Current Visit: Yes Status: Acute Code(s): E11.65 - TYPE 2 DIABETES MELLITUS WITH HYPERGLYCEMIA SNOMED Code(s): 76731553 (9) SBO (small bowel obstruction) Current Visit: Yes Status: Acute Code(s): K56.609 - UNSP INTESTNL OBST, UNSP TO PARTIAL VERSUS COMPLETE OBST SNOMED Code(s): 867706236 (10) Dehydration Current Visit: No Status: Acute Code(s): E86.0 - DEHYDRATION SNOMED Code(s ): 34549431 Plan: 1. Start clear liquid diet 2. Rectal suppository for severe constipation 3. Discharge pending flatus and or bowel movement
[2017-06-30] MEDS ORDERED: BISACODYL 10 MG SUPP RECTAL STA (11:22)
[2017-06-30 11:42] LABS: Glucose,Whole Blood 150 mg/dL (75-99)
[2017-06-30 17:06] LABS: Glucose,Whole Blood 375 mg/dL (75-99)
[2017-06-30 20:20] LABS: Glucose,Whole Blood 277 mg/dL (75-99)
[2017-06-30] MEDS: INSULIN DETEMIR 100 UNIT/ML 10 ML VIAL SQ SCH (22:25)
[2017-07-01] MEDS: ceFAZolin IN SWFI 2 GM/20 ML SYRINGE IVP SCH ×3 (00:23→15:46)
[2017-07-01] MEDS: metroNIDAZOLE-NS PMX 500 MG in SALINE 1 100ML.BAG IVPB SCH ×3 (00:23→15:46)
[2017-07-01 00:36] LABS: Glucose,Whole Blood 278 mg/dL (75-99)
[2017-07-01] MEDS: INSULIN ASPART 100 UNIT/ML 1 ML 10 ML VIAL SQ SCH ×6 (00:37→21:04)
--- NOTE | 2017-07-01 03:33 | PN ---
PROGRESS NOTE DATE OF SERVICE: June 30, 2017. PRESENTING COMPLAINT: Abdominal surgery. INTERVAL HISTORY: Patient had a small bowel obstruction, status post surgery. Wound VAC in place. NG tube remains. Not passing flatus this morning. Epidural has been off. No nausea, vomiting. REVIEW OF SYSTEMS: Done for constitutional, cardiovascular GI and pulmonary, relevant findings as above. CURRENT MEDICATIONS: Reviewed. EXAMINATION: Temperature 98.2, pulse 75, respirations 16, blood pressure 115/65, pulse ox 97% on 3 L. GENERAL APPEARANCE: Lying in bed, awake. Eyes: Pupils are equal. Conjunctivae normal. HEENT: External appearance of nose and ears normal. Oral cavity normal. NG tube in place. Neck JVD not raised. Mass not palpable. Respiratory effort normal. Lungs fair entry. Cardiovascular 1st and 2nd sounds normal. No edema. ABDOMEN: Soft. Bowel sounds are present. A wound VAC in place. Psychiatry: Alert and oriented x3. Mood and affect normal. INVESTIGATIONS: White count 10. Accu-Cheks are noted. ASSESSMENT: 1. Acute distal small bowel obstruction status post resection and end to end anastomosis. 2. Moderate to large hiatal hernia. 3. Chronic L1 compression fracture, possibly osteoporosis. 4. Primary osteoarthritis multiple joints bilateral. 5. Diabetes mellitus type 2 uncontrolled with hyperglycemia and hypoglycemia. 6. Chronic seizure disorder. 7. Hypothyroidism. 8. History of colon cancer. 9. Hypoalbuminemia as an acute phase reactant. PLAN: Continue current medication and treatment plan. The patient was to be started on clear liquids by Dr. Lua. I will keep the patient on IV medications for now until she is able to tolerate some diet. MMODL / IJN: [id number] /
[2017-07-01 05:32] LABS: Glucose,Whole Blood 141 mg/dL (75-99)
[2017-07-01] MEDS ORDERED: BISACODYL 10 MG SUPP RECTAL ONE (07:55)
[2017-07-01] MEDS: PANTOPRAZOLE 40 MG/10 ML VIAL IV SCH (08:00)
[2017-07-01] MEDS: LEVOTHYROXINE IVP 100 MCG/5 ML VIAL IV SCH (08:01)
[2017-07-01] MEDS: HEPARIN SODIUM,PORCINE 5,000 UNIT/ML 1 ML VIAL SQ SCH ×2 (08:07→21:04)
[2017-07-01] MEDS ORDERED: SODIUM CHLORIDE 0.9% 1,000 ML IV SCH (08:30)
--- NOTE | 2017-07-01 08:39 | P.PN ---
Subjective Progress Note Date: 07/01/17 Principal diagnosis: Bowel obstruction The patient is a 82-year-old female status post lysis of adhesions and small bowel obstruction from bowel obstruction. She is postoperative day 5. Her pain is well-controlled. She is yet to have a bowel movement or pass flatus. Her is at bedside. Postop care instructions including post discharge instructions reviewed. Concern for elevated blood sugars reviewed. She is tolerating diet. She is feeling better today than yesterday. She had declined her suppository yesterday. Objective - Vital Signs Vital signs: Vital Signs Temp 97.6 F 07/01/17 00:40 Pulse 72 07/01/17 00:40 Resp 12 07/01/17 00:40 BP 104/61 07/01/17 00:40 Pulse Ox 95 07/01/17 00:40 Intake & Output 06/30/17 07/01/17 07/01/17 18:59 06:59 18:59 Intake Total 800 Balance 800 Weight 56.699 kg Intake: IV 800 Dextrose 5%-0.45% NaCl 1, 800 000 ml @ 100 mls/hr IV . Q10H [facility] Rx#:[id number] Other: Voiding Method Bedside Commode Bedside Commode # Voids 2 2 - Exam GENERAL: Well developed and in no acute distress. Pleasant. HEENT: No sclera icterus. Extraocular movements grossly intact. Moist buccal mucosa. Head is atraumatic, normocephalic. Hears conversational speech. NECK: Supple without lymphadenopathy. CHEST: Non-labored respirations and equal bilateral excursions. CARDIOVASCULAR: Regular rate and rhythm. Palpable 2+ radial pulses. ABDOMEN: Soft, nontender. Nondistended. Dressing clean, dry, and intact with Prevena wound VAC. MUSCULOSKELETAL: No clubbing, cyanosis. Edema 1+ distal lower extremity. NEUROLOGIC: No focal or lateralizing signs. PSYCH: Appropriate affect. Alert and oriented to person, place and time. SKIN: Good skin turgor. Well perfused. - Labs CBC & Chem 7: 06/30/17 08:12 06/29/17 06:11 Labs: Abnormal Lab Results - Last 24 Hours (Table) 06/30/17 06/30/17 06/30/17 Range/Units 08:12 11:31 16:55 Hgb 11.3 L (11.4-16.0) gm/dL Neutrophils # 8.8 H (1.3-7.7) k/uL Lymphocytes # 0.7 L (1.0-4.8) k/uL POC Glucose (mg/dL) 150 H 375 H (75-99) mg/dL 06/30/17 07/01/17 07/01/17 Range/Units 20:15 00:34 05:29 Hgb (11.4-16.0) gm/dL Neutrophils # (1.3-7.7) k/uL Lymphocytes # (1.0-4.8) k/uL POC Glucose (mg/dL) 277 H 278 H 141 H (75-99) mg/dL Assessment and Plan (1) Pyuria Current Visit: Yes Status: Acute Code(s): N39.0 - URINARY TRACT INFECTION, SITE NOT SPECIFIED SNOMED Code(s): 3996609 (2) Gastric volvulus Current Visit: Yes Status: Acute Code(s): K31.89 - OTHER DISEASES OF STOMACH AND DUODENUM SNOMED Code(s): 47208819 (3) Diverticulosis Current Visit: Yes Status: Acute Code(s): K57.90 - DVRTCLOS OF INTEST, PART UNSP, W/O PERF OR ABSCESS W/O BLEED SNOMED Code(s): 69647516 (4) History of colon cancer Current Visit: Yes Status: Acute Code(s): Z85.038 - PERSONAL HISTORY OF MALIGNANT NEOPLASM OF LARGE INTESTINE SNOMED Code(s): 246033219 (5) Nausea & vomiting Current Visit: Yes Status: Acute Code(s): R11.2 - NAUSEA WITH VOMITING, UNSPECIFIED SNOMED Code(s): 31068587 (6) Hypothyroidism Current Visit: Yes Status: Acute Code(s): E03.9 - HYPOTHYROIDISM, UNSPECIFIED SNOMED Code(s): 78057148 (7) Seizure disorder Current Visit: Yes Status: Acute Code(s): G40.909 - EPILEPSY, UNSP, NOT INTRACTABLE, WITHOUT STATUS EPILEPTICUS SNOMED Code(s): 209960545 (8) Poorly controlled type 2 diabetes mellitus Current Visit: Yes Status: Acute Code(s): E11.65 - TYPE 2 DIABETES MELLITUS WITH HYPERGLYCEMIA SNOMED Code(s): 95320226 (9) SBO (small bowel obstruction) Current Visit: Yes Status: Acute Code(s): K56.609 - UNSP INTESTNL OBST, UNSP TO PARTIAL VERSUS COMPLETE OBST SNOMED Code(s): 359689477 (10) Dehydration Current Visit: No Status: Acute Code(s): E86.0 - DEHYDRATION SNOMED Code(s ): 52967551 Plan: 1. Saline lock 2. Suppository today. 3. Discharge pending flatus or bowel movement.
[2017-07-01] MEDS: levETIRAcetam IV 500 MG in SODIUM CHLORIDE 0.9% 100 ML IVPB SCH ×2 (10:43→21:03)
[2017-07-01 11:33] LABS: Glucose,Whole Blood 90 mg/dL (75-99)
[2017-07-01] MEDS: DEXTROSE 5%-0.45% NACL 1,000 ML IV SCH (11:45)
[2017-07-01] MEDS ORDERED: MORPHINE ORAL SOLN 10 MG/5 ML CUP PO PRN (13:15)
[2017-07-01 16:54] LABS: Glucose,Whole Blood 146 mg/dL (75-99)
[2017-07-01 20:39] LABS: Glucose,Whole Blood 143 mg/dL (75-99)
[2017-07-01] MEDS: INSULIN DETEMIR 100 UNIT/ML 10 ML VIAL SQ SCH (21:04)
[2017-07-02] MEDS: metroNIDAZOLE-NS PMX 500 MG in SALINE 1 100ML.BAG IVPB SCH ×3 (00:31→16:36)
[2017-07-02] MEDS: ceFAZolin IN SWFI 2 GM/20 ML SYRINGE IVP SCH ×3 (00:31→16:36)
--- NOTE | 2017-07-02 00:37 | PN ---
PROGRESS NOTE DATE OF SERVICE: June. PRESENTING COMPLAINT: Abdominal surgery. INTERVAL HISTORY: Patient is status post small bowel obstruction. Wound VAC in place. I saw the patient yesterday morning. NG tube remains in place. Has not passed any flatus. Overall feels better. No nausea, vomiting. REVIEW OF SYSTEMS: Done for constitutional, cardiovascular, GI, pulmonary and relevant findings as above. CURRENT MEDICATIONS: Reviewed and include IV Flagyl. PHYSICAL EXAMINATION: Temperature 97.8, pulse 71, respirations 16, blood pressure 127/76, pulse ox 94% on room air. General appearance: Lying in bed, awake. Eyes pupils are equal. Conjunctivae normal. HEENT external appearance of nose and ears normal. Oral cavity normal. NG tube in place. Neck JVD not raised. Mass not palpable. Respiratory effort lungs slightly decreased breath sounds. Cardiovascular 1st and 2nd sounds normal. No edema. ABDOMEN: Soft. Bowel sounds are present. Tenderness present. Wound VAC in place. Psychiatry: Alert and oriented x3. Mood and affect is normal. INVESTIGATIONS: Accu-Cheks are noted. ASSESSMENT: 1. Acute distal small bowel obstruction status post resection and end to end anastomosis. 2. Moderate to large hiatal hernia. 3. Chronic L1 compression fracture, possibly osteoporotic. 4. Primary osteoarthritis multiple joints bilateral. 5. Diabetes mellitus type 2 uncontrolled with hyperglycemia and hypoglycemia. 6. Chronic seizure disorder. 7. Hypothyroidism. 8. History of colon cancer. 9. Hypoalbuminemia as an acute phase reactant. PLAN: Continue current medication and treatment plan. The patient was started on clear liquids by Dr. Lua. Once patient able to tolerate a diet, can be switched over to oral medication. MMODL / IJN: [id number] /
[2017-07-02 07:15] LABS: Glucose,Whole Blood 48 mg/dL (75-99)
[2017-07-02] MEDS: INSULIN ASPART 100 UNIT/ML 1 ML 10 ML VIAL SQ SCH ×4 (07:22→21:41)
[2017-07-02 07:56] LABS: Glucose,Whole Blood 49 mg/dL (75-99)
[2017-07-02 07:56] LABS: Glucose,Whole Blood 67 mg/dL (75-99)
[2017-07-02 08:18] LABS: Glucose,Whole Blood 177 mg/dL (75-99)
[2017-07-02] MEDS: LEVOTHYROXINE IVP 100 MCG/5 ML VIAL IV SCH (08:43)
[2017-07-02] MEDS: PANTOPRAZOLE 40 MG/10 ML VIAL IV SCH (08:43)
[2017-07-02] MEDS: HEPARIN SODIUM,PORCINE 5,000 UNIT/ML 1 ML VIAL SQ SCH ×2 (08:43→21:41)
[2017-07-02] MEDS: levETIRAcetam IV 500 MG in SODIUM CHLORIDE 0.9% 100 ML IVPB SCH (10:09)
[2017-07-02] MEDS: HYDROcodone/APAP 5-325MG 1 EACH TAB PO PRN ×2 (10:24→18:37)
--- NOTE | 2017-07-02 10:26 | P.PN ---
<Clare Leone - Last Filed: 07/02/17 09:55> Subjective Progress Note Date: 07/02/17 82-year-old female seen and examined at bedside. Currently sitting up taking a clear liquid diet tolerating reports no nausea vomiting. Patient states had a small bowel movement last evening and this morning did note this morning the blood sugar is 67 surgical dressing site with prevera wound system in place. Abdominal binder in place abdomen soft nondistended. Postop June 26 exploratory laparotomy, extensive lysis of adhesions, small bowel resection with placement of Provena wound VAC system, open initial umbilical hernia 2 cm repair without mesh done for radiation enteritis, please small bowel obstruction at mid ileum, gastric volvulus, umbilical hernia 2 cm reducible Objective - Vital Signs Vital signs: Vital Signs Temp 97.5 F L 07/02/17 07:20 Pulse 84 07/02/17 07:20 Resp 16 07/02/17 07:20 BP 132/63 07/02/17 07:20 Pulse Ox 91 L 07/02/17 07:20 Intake & Output 07/01/17 07/02/17 07/02/17 18:59 06:59 18:59 Output Total 200 Balance -200 Weight 56.699 kg Output: Stool 200 Other: Voiding Method Bedside Commode Bedside Commode # Voids 2 2 # Bowel Movements 1 - Exam Physical exam Pleasant 82-year-old female sitting up in bed taking a clear liquid diet tolerating no nausea no vomiting Lungs adequate air movement bilaterally no cough no shortness of breath Heart S1-S2 audible regular denying chest pain Abdomen soft not distended surgical tenderness appropriate abdominal binder in place with a prevena wound in place states had a small stool this morning not passing gas no nausea no vomiting tolerating diet urinating no difficulty Extremities Venodyne's on to the bilateral lower extremities no edema noted - Labs CBC & Chem 7: 06/30/17 08:12 07/02/17 08:14 Labs: Abnormal Lab Results - Last 24 Hours (Table) 07/01/17 07/01/17 07/02/17 Range/Units 16:52 20:36 07:12 POC Glucose (mg/dL) 146 H 143 H 48 L (75-99) mg/dL 07/02/17 07/02/17 07/02/17 Range/Units 07:30 07:55 08:16 POC Glucose (mg/dL) 49 L 67 L 177 H (75-99) mg/dL Assessment and Plan Assessment: Impression Present on admission abdominal pain nausea vomiting suspect due to small bowel obstruction Present on admission systolic murmur related to aortic stenosis Acute distal small bowel obstruction status post resection with end anastomosis done on June 26 Moderate to large hiatal hernia History of colon cancer History of a seizure disorder Type 2 diabetes episodes of hyperglycemia and hypoglycemia Status post done on June 26 exploratory laparotomy, extensive lysis of adhesions , small bowel resection mid ileum with primary anastomosis with reduction of gastric volvulus, open initial umbilical hernia 2 cm repair without mesh for complete small bowel obstruction radiation enteritis, hiatal hernia Debilitated Plan Diet will be advanced to full liquid Continue postop surgical care From a surgical perspective is felt to be stable for discharge defer to the timing to the attending Resume home meds as appropriate Increase activity The above impression and plan of care have been discussed and directed by signing physician. Clare Leone nurse practitioner acting as scribe for signing physician. <Minerva Lua N - Last Filed: 07/02/17 18:55> Objective - Vital Signs Vital signs: Vital Signs Temp 98.2 F 07/02/17 15:00 Pulse 78 07/02/17 15:00 Resp 16 07/02/17 15:00 BP 120/56 07/02/17 15:00 Pulse Ox 92 L 07/02/17 15:00 Intake & Output 07/01/17 07/02/17 07/02/17 18:59 06:59 18:59 Output Total 200 Balance -200 Weight 56.699 kg 56.699 kg Output: Stool 200 Other: Voiding Method Bedside Commode Bedside Commode Toilet # Voids 2 2 2 # Bowel Movements 1 - Labs CBC & Chem 7: 06/30/17 08:12 07/02/17 08:14 Labs: Abnormal Lab Results - Last 24 Hours (Table) 07/01/17 07/02/17 07/02/17 Range/Units 20:36 07:12 07:30 POC Glucose (mg/dL) 143 H 48 L 49 L (75-99) mg/dL 07/02/17 07/02/17 07/02/17 Range/Units 07:55 08:16 11:45 POC Glucose (mg/dL) 67 L 177 H 136 H (75-99) mg/dL 07/02/17 Range/Units 17:16 POC Glucose (mg/dL) 300 H (75-99) mg/dL Assessment and Plan (1) Pyuria Current Visit: Yes Status: Acute Code(s): N39.0 - URINARY TRACT INFECTION, SITE NOT SPECIFIED SNOMED Code(s): 7943394 (2) Gastric volvulus Current Visit: Yes Status: Acute Code(s): K31.89 - OTHER DISEASES OF STOMACH AND DUODENUM SNOMED Code(s): 82601477 (3) Diverticulosis Current Visit: Yes Status: Acute Code(s): K57.90 - DVRTCLOS OF INTEST, PART UNSP, W/O PERF OR ABSCESS W/O BLEED SNOMED Code(s): 48446283 (4) History of colon cancer Current Visit: Yes Status: Acute Code(s): Z85.038 - PERSONAL HISTORY OF MALIGNANT NEOPLASM OF LARGE INTESTINE SNOMED Code(s): 338582011 (5) Nausea & vomiting Current Visit: Yes Status: Acute Code(s): R11.2 - NAUSEA WITH VOMITING, UNSPECIFIED SNOMED Code(s): 82624026 (6) Hypothyroidism Current Visit: Yes Status: Acute Code(s): E03.9 - HYPOTHYROIDISM, UNSPECIFIED SNOMED Code(s): 83140871 (7) Seizure disorder Current Visit: Yes Status: Acute Code(s): G40.909 - EPILEPSY, UNSP, NOT INTRACTABLE, WITHOUT STATUS EPILEPTICUS SNOMED Code(s): 766112543 (8) Poorly controlled type 2 diabetes mellitus Current Visit: Yes Status: Acute Code(s): E11.65 - TYPE 2 DIABETES MELLITUS WITH HYPERGLYCEMIA SNOMED Code(s): 73199064 (9) SBO (small bowel obstruction) Current Visit: Yes Status: Acute Code(s): K56.609 - UNSP INTESTNL OBST, UNSP TO PARTIAL VERSUS COMPLETE OBST SNOMED Code(s): 165533368 (10) Dehydration Current Visit: No Status: Acute Code(s): E86.0 - DEHYDRATION SNOMED Code(s ): 81766707
[2017-07-02 11:47] LABS: Glucose,Whole Blood 136 mg/dL (75-99)
[2017-07-02 17:24] LABS: Glucose,Whole Blood 300 mg/dL (75-99)
--- NOTE | 2017-07-02 18:54 | P.PN ---
Progress Note - Text Progress Note Date: 07/02/17 PREVENA wound vac removed. OptiFoam dressing placed. Patient may be discharged home with follow-up in office next week. Do not remove dressings as to be removed in the office.
[2017-07-02 20:47] LABS: Glucose,Whole Blood 296 mg/dL (75-99)
[2017-07-02] MEDS: metFORMIN 500 MG TAB PO SCH (21:40)
[2017-07-02] MEDS: levETIRAcetam 500 MG TAB PO SCH (21:40)
--- NOTE | 2017-07-02 22:14 | PN ---
PROGRESS NOTE DATE OF SERVICE: 07/02/2017 PRESENTING COMPLAINT: Abdominal surgery. INTERVAL HISTORY: Patient is status post small-bowel obstruction. Wound VAC is in place. Patient has passed a small amount of stool. Patient did become hypoglycemic this morning. I ordered the hypoglycemic protocol and asked them to change the IV fluids to D5 0.45. REVIEW OF SYSTEMS: Done for constitutional, cardiovascular, GI, pulmonary; relevant findings as above. CURRENT MEDICATIONS: Reviewed. They include IV Flagyl. PHYSICAL EXAMINATION: Temperature 97.5, pulse 84, respiration 16, blood pressure 132/63, pulse ox 91% on 3 L. GENERAL APPEARANCE: Lying in bed, awake. EYES: Pupils equal. Conjunctivae normal. HEENT: External appearance of nose and ears normal. Oral cavity normal. NG tube was taken out. NECK: JVD not raised. Mass not palpable. RESPIRATORY: Effort normal. LUNGS: Slightly decreased breath sounds. CARDIOVASCULAR: First and second sounds normal. No edema. ABDOMEN: Soft, non-tender. Bowel sounds are present. Wound VAC in place. PSYCHIATRY: Alert and oriented x3. Mood and affect normal. INVESTIGATIONS: Patient's Accu-Cheks this morning had dropped down to 48 and 49. ASSESSMENT: 1. Acute distal small-bowel obstruction, status post resection with end-to-end anastomosis. 2. Moderate to large hiatal hernia. 3. Chronic L1 compression fracture, possibly osteoporotic. 4. Primary osteoarthritis in multiple joints, bilateral. 5. Diabetes mellitus, type 2, uncontrolled with hyper- and hypoglycemia. 6. Chronic seizure disorder. 7. Hypothyroidism. 8. History of colon cancer. 9. Hypoalbuminemia as an acute phase reactant. 10.Hypoglycemia episodes, severe, this morning. PLAN: Patient's IV fluids will be changed to D5 0.45. Diet is to be advanced. Patient's Levemir dose will be held. MMODL / IJN: [id number] /
[2017-07-03] MEDS: metroNIDAZOLE-NS PMX 500 MG in SALINE 1 100ML.BAG IVPB SCH ×2 (00:45→07:48)
[2017-07-03] MEDS: ceFAZolin IN SWFI 2 GM/20 ML SYRINGE IVP SCH ×2 (00:45→07:48)
[2017-07-03 05:20] LABS: Glucose,Whole Blood 322 mg/dL (75-99)
[2017-07-03] MEDS ORDERED: LEVOTHYROXINE 75 MCG TAB PO SCH (06:30)
[2017-07-03 07:16] LABS: Glucose,Whole Blood 347 mg/dL (75-99)
[2017-07-03] MEDS ORDERED: PANTOPRAZOLE 40 MG TABLET PO SCH (07:30)
[2017-07-03 07:46] VITALS: BP 137/70; PULSE 74; RESP 16; TEMP 98.6
[2017-07-03] MEDS: INSULIN ASPART 100 UNIT/ML 1 ML 10 ML VIAL SQ SCH ×2 (07:48→12:55)
[2017-07-03] MEDS: ONDANSETRON 4 MG/2 ML VIAL IVP PRN (07:54)
[2017-07-03] MEDS ORDERED: SERTRALINE 25 MG TAB PO SCH (09:00)
[2017-07-03] MEDS ORDERED: NON-FORMULARY DRUG (Mirabegron [Myrbetriq] 50 MG) PO SCH (09:00)
[2017-07-03] MEDS ORDERED: POLYETHYLENE GLYCOL 3350 17 GM POWD.PACK PO SCH (09:00)
[2017-07-03] MEDS: metFORMIN 500 MG TAB PO SCH (09:17)
[2017-07-03] MEDS: HEPARIN SODIUM,PORCINE 5,000 UNIT/ML 1 ML VIAL SQ SCH (09:18)
[2017-07-03] MEDS: levETIRAcetam 500 MG TAB PO SCH (09:18)
--- NOTE | 2017-07-03 09:26 | P.PN ---
<Omaira Leonetanner Knutson - Last Filed: 07/03/17 09:12> Subjective Progress Note Date: 07/03/17 82-year-old female seen and examined at bedside. Currently is sitting up in a chair taking a soft diet tolerating. Did note the blood sugar this morning 347 Patient states anxious to be discharged home sats on room air 97% no shortness of breath with conversation no cough noted abdomen soft and not distended nontender with abdominal binder in place bowel tones present. Patient states had a small bowel movement last evening. optifoam dressing in place dressings dry Postop June 26 exploratory laparotomy, extensive lysis of adhesions, small bowel resection with placement of Provena wound VAC system, open initial umbilical hernia 2 cm repair without mesh done for radiation enteritis, please small bowel obstruction at mid ileum, gastric volvulus, umbilical hernia 2 cm reducible Objective - Vital Signs Vital signs: Vital Signs Temp 98.6 F 07/03/17 07:00 Pulse 74 07/03/17 07:00 Resp 16 07/03/17 07:00 BP 137/70 07/03/17 07:00 Pulse Ox 97 07/03/17 07:00 Intake & Output 07/02/17 07/03/17 07/03/17 18:59 06:59 18:59 Intake Total 2459 Balance 2459 Weight 56.699 kg 56.699 kg Intake: Intake, IV Titration 1719 Amount IV Fluid Continuation 1, 20 000 ml As IV [facility] Rx#:[id number] Sodium Chloride 0.9% 1, 1599 000 ml As IV [facility] Rx#:[id number] metroNIDAZOLE-NS PMX 500 100 mg In Saline 1 100ml.bag @ 100 mls/hr IVPB Q8HR [facility] Rx#:[id number] Oral 740 Other: Voiding Method Toilet Toilet # Voids 2 1 # Bowel Movements 2 - Exam Physical exam 82-year-old female sitting up in a chair taking a diet pleasant cooperative Lungs adequate air movement bilaterally no wheezing rales or rhonchi on room air sats 97% no shortness of breath noted Heart S1-S2 audible regular Abdomen abdominal binder in place Optiform surgical dressing in place dry bowel tones present no nausea no vomiting soft nondistended nontender Extremities no edema noted bilaterally - Labs CBC & Chem 7: 06/30/17 08:12 07/02/17 08:14 Labs: Abnormal Lab Results - Last 24 Hours (Table) 07/02/17 07/02/17 07/02/17 Range/Units 11:45 17:16 20:45 POC Glucose (mg/dL) 136 H 300 H 296 H (75-99) mg/dL 07/03/17 07/03/17 Range/Units 05:17 07:15 POC Glucose (mg/dL) 322 H 347 H (75-99) mg/dL Assessment and Plan Assessment: Impression Present on admission abdominal pain nausea vomiting suspect due to small bowel obstruction Present on admission systolic murmur related to aortic stenosis Acute distal small bowel obstruction status post resection with end anastomosis done on June 26 Moderate to large hiatal hernia History of colon cancer History of a seizure disorder Type 2 diabetes episodes of hyperglycemia and hypoglycemia Status post done on June 26 exploratory laparotomy, extensive lysis of adhesions , small bowel resection mid ileum with primary anastomosis with reduction of gastric volvulus, open initial umbilical hernia 2 cm repair without mesh for complete small bowel obstruction radiation enteritis, hiatal hernia Debilitated Plan Will DC antibiotics Okay for discharge from a surgical perspective Diet will be advanced to full soft Continue postop surgical care Do not remove surgical dressings until seen by the surgeon in the office Resume home meds as appropriate Increase activity The above impression and plan of care have been discussed and directed by signing physician. Clare Leone nurse practitioner acting as scribe for signing physician. <Minerva Lua N - Last Filed: 07/03/17 19:04> Objective - Vital Signs Vital signs: Vital Signs Temp 98.6 F 07/03/17 07:00 Pulse 74 07/03/17 07:00 Resp 16 07/03/17 07:00 BP 137/70 07/03/17 07:00 Pulse Ox 97 07/03/17 07:00 Intake & Output 07/03/17 07/03/17 07/04/17 06:59 18:59 06:59 Intake Total 2459 360 Balance 2459 360 Weight 56.699 kg Intake: Intake, IV Titration 1719 Amount IV Fluid Continuation 1, 20 000 ml As IV [facility] Rx#:[id number] Sodium Chloride 0.9% 1, 1599 000 ml As IV [facility] Rx#:[id number] metroNIDAZOLE-NS PMX 500 100 mg In Saline 1 100ml.bag @ 100 mls/hr IVPB Q8HR [facility] Rx#:[id number] Oral 740 360 Other: Voiding Method Toilet # Voids 1 3 # Bowel Movements 2 - Labs CBC & Chem 7: 06/30/17 08:12 07/02/17 08:14 Labs: Abnormal Lab Results - Last 24 Hours (Table) 07/02/17 07/03/17 07/03/17 Range/Units 20:45 05:17 07:15 POC Glucose (mg/dL) 296 H 322 H 347 H (75-99) mg/dL 07/03/17 Range/Units 11:43 POC Glucose (mg/dL) 358 H (75-99) mg/dL Assessment and Plan (1) Pyuria Status: Acute Code(s): N39.0 - URINARY TRACT INFECTION, SITE NOT SPECIFIED SNOMED Code(s): 5605222 (2) Gastric volvulus Status: Acute Code(s): K31.89 - OTHER DISEASES OF STOMACH AND DUODENUM SNOMED Code(s): 88138938 (3) Diverticulosis Status: Acute Code(s): K57.90 - DVRTCLOS OF INTEST, PART UNSP, W/O PERF OR ABSCESS W/O BLEED SNOMED Code(s): 37851773 (4) History of colon cancer Status: Acute Code(s): Z85.038 - PERSONAL HISTORY OF MALIGNANT NEOPLASM OF LARGE INTESTINE SNOMED Code(s): 620018174 (5) Nausea & vomiting Status: Acute Code(s): R11.2 - NAUSEA WITH VOMITING, UNSPECIFIED SNOMED Code (s): 54187878 (6) Hypothyroidism Status: Acute Code(s): E03.9 - HYPOTHYROIDISM, UNSPECIFIED SNOMED Code(s): 96168427 (7) Seizure disorder Status: Acute Code(s): G40.909 - EPILEPSY, UNSP, NOT INTRACTABLE, WITHOUT STATUS EPILEPTICUS SNOMED Code(s): 217846596 (8) Poorly controlled type 2 diabetes mellitus Status: Acute Code(s): E11.65 - TYPE 2 DIABETES MELLITUS WITH HYPERGLYCEMIA SNOMED Code(s): 84767833 (9) SBO (small bowel obstruction) Status: Acute Code(s): K56.609 - UNSP INTESTNL OBST, UNSP TO PARTIAL VERSUS COMPLETE OBST SNOMED Code(s): 997872397 (10) Dehydration Status: Acute Code(s): E86.0 - DEHYDRATION SNOMED Code(s): 05101981
[2017-07-03 12:07] LABS: Glucose,Whole Blood 358 mg/dL (75-99)
--- NOTE | 2017-07-04 07:39 | DS ---
DISCHARGE SUMMARY DATE OF ADMISSION: 06/25/2017 DATE OF DISCHARGE: 07/03/2017 FINAL DIAGNOSES: 1. Acute distal small bowel obstruction, status post resection with end-to-end anastomosis. 2. Moderate to large hiatal hernia. 3. Chronic L1 compression fracture, possibly osteoporotic. 4. 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 5. Diabetes mellitus type 2 uncontrolled with hyper- and hypoglycemia. 6. Chronic seizure disorder. 7. Hypothyroidism. 8. History of colon cancer. 9. Hypoalbuminemia as an acute phase reactant. CONSULTATION: Dr. Lua from General Surgery, Dr. Armenta from Cardiology. HOSPITAL COURSE: This patient presented with small-bowel obstruction, underwent surgery by Dr. Lua. By the time of discharge, doing much better, tolerating a full liquid diet, had a bowel movement. Pain was much better controlled. The patient was pulse oxing well on room air, up to the bathroom. Today care was discussed with the patient and the . Questions were answered. Insulin was also discussed. The patient was cleared by Surgery. Medically stable. ON EXAMINATION: LUNGS: Fair entry. CARDIOVASCULAR: First and second sounds normal. ABDOMEN: Soft, mild tenderness. Incision healing well. DISCHARGE MEDICATIONS: 1. Synthroid 150 mcg a day. 2. Zoloft 25 mg a day. 3. Keppra 500 mg b.i.d. 4. Glucophage 500 mg b.i.d. 5. Zestril 5 mg p.o. daily. 6. NovoLog FlexPen a.c. t.i.d. 7. Lantus 15 to 20 units subcu at bedtime. 8. Myrbetriq 50 mg p.o. daily. 9. Pixley 5 one tablet q.[address] Lua. 10.MiraLAX 17 gram p.o. daily per surgery. Follow up with Dr. Armenta on 07/25/17, Dr. Turpin in 3 days, Dr. Lua on 07/10/17. Further instructions as per Surgery and wound care. Discussion and discharge planning more than 35 minutes. MMODL / IJN: [id number] /
--- NOTE | 2017-07-26 08:27 | P.OP ---
Date of Procedure: 06/26/17 Description of Procedure: Date of Procedure: 06/26/17 SURGEON: MINERVA LUA MD CORE LOADER: [place] LIPSCOMB PREOPERATIVE DIAGNOSES: 1. Small bowel obstruction 2. Abdominal ascites 3. Hiatal hernia with gastric volvulus 4. History of colon cancer 5. History of diverticulosis 6. Diabetes type 2, insulin-dependent 7. Hypothyroidism 8. Chronic diarrhea 9. Seizure disorder 10. Hypertensive heart disease with cardiomyopathy 11. Depressive disorder 12. Personal history of chemoradiation POSTOPERATIVE DIAGNOSES: 1. Small bowel obstruction 2. Abdominal ascites 3. Hiatal hernia 4. History of colon cancer 5. History of diverticulosis 6. Diabetes type 2, insulin-dependent 7. Hypothyroidism 8. Chronic diarrhea 9. Seizure disorder 10. Hypertensive heart disease with cardiomyopathy 11. Depressive disorder 12. 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 Complete small bowel obstruction at mid ileum 15. Gastric volvulus mesenteroaxial rotation 16. Umbilical hernia 2 cm reducible Procedure(s) Performed: 1. Exploratory laparotomy 2. Extensive lysis of adhesions, over 1 hour 3. Small bowel resection mid ileum with primary anastomosis 1 4. Reduction of gastric volvulus 5. Peritoneal lavage 3 L 6. Intraoperative placement nasogastric tube, 16Fr 7. Placement of PREVENA 20-cm wound VAC 8. Open initial umbilical hernia repair, 2-cm without mesh Anesthesia: GETA, epidural Surgeon: Minerva Lua Estimated Blood Loss (ml): 100 Pathology: other (Small bowel resection) Condition: stable Disposition: floor Operative Findings: 1. 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 Chronic small bowel obstruction with complete collapse of lumen at mid ileum requiring resection 3. Primary anastomosis made with 60 mm purple Covidien staple load 4. Small bowel enteric content consistent with thick paste evacuated from small bowel also consistent with chronic small bowel obstruction 5. Reduction of the mesenteric axial gastric volvulus with placement of nasogastric tube 6. Appendix present 7. Severe constipation involving the entire colon with concrete stools 8. Redundant transverse colon to pelvis 9. Umbilical hernia reducible, repaired 10. Contaminated case requiring prolonged antibiotics 11. Skin cleansed with dilute solution peroxide with skin peewee avoided and placement of PREVENA wound VAC INDICATIONS: The patient is an 82-year-old female who reports over a 4-day history of abdominal pain including nausea and inability to pass flatus. CT of the abdomen that was consistent with transition point. Clinical features were consistent with complete small bowel obstruction. Surgical intervention was discussed with the patient and family including small bowel resection. Benefits and risks were thoroughly described. Informed consent had been obtained. DESCRIPTION OF PROCEDURE: The patient was brought to the operating room, laid in supine position. After general induction, the abdomen had been prepped and draped in a standard sterile fashion. Ioban draping was placed. A Arreguin catheter was placed. Prior to incision, a timeout protocol was performed by the surgical team regarding the patient's name including procedures being performed. She had prior incisions of the lower abdomen along the midline. The skin was marked with indelible marker and incision was made using #10 blade of the epigastrium down to the pubis. Bleeding was controlled with electro-Bovie cautery. Entry into the abdomen had occurred above the umbilicus where carefully a hemostat was used to elevate the peritoneum which was then incised. Immediately dense adhesions were found along the abdominal wall whereby digital palpation and blunt dissection were performed. Next, the rest of the abdominal cavity was entered using electro- Bovie cautery without any injury to bowel. A 2 cm reducible umbilical hernia was identified. Interloop adhesions including adhesions to the abdominal wall was also confirmed. Using a Metzenbaum scissor, sharp dissection was performed. Cautious and careful dissection was performed using primarily sharp dissection. The mid- jejunum was carefully freed. The rest of lysis of adhesions and enterolysis had been continued distally. Extensive lysis of adhesions occurred for over an hour using Metzenbaum scissors and sharp dissection without enterotomies. Complete inspection of the abdomen was performed upon completion of lysis of adhesions demonstrating thickened small bowel involving the ileum consistent with previous radiation enteritis. Severe constipation involving the entire colon with concrete stools was palpated. No evidence of palpated tumor or cancer of the small large bowel was identified. The appendix was present and without abnormalities. Redundant transverse colon to pelvis was identified. Attention was brought to the stomach where gastric volvulus was identified and reduced. After reduction of the mesenteroaxial gastric volvulus, placement of nasogastric tube was carefully guided into the stomach with a combined effort with the nurse display department manager. Nasogastric tube was secured. The proximal small bowel was dilated however distally the small bowel was collapsed from the mid ileum. A fibrotic band of the lumen was palpated along the mid ileum. Chronic small bowel obstruction with complete collapse of lumen at mid ileum was confirmed hence requiring resection. Proximal to the fibrotic band, a transverse enterotomy was performed after toweling off the rest of the abdomen to minimize contamination. Small bowel enteric content was consistent with thick green paste and was evacuated after irrigation of the proximal small bowel using normal saline and suction. Findings also confirmed chronic small bowel obstruction. Distal to the fibrotic band, approximately over 6 cm of small bowel was fibrosed with very narrow lumen hence resection was performed. Next, a window was created along the mesentery proximal and distally of the mid ileum approximately 10 cm. A stapler was fired proximally and distally. The small bowel mesentery was mobilized using a LigaSure. The specimen was passed off for further pathological analysis. Next, using 3-0 silk, a tacking suture was placed at the seat of the proposed anastomosis to prevent any undue tension. An enterotomy was made along the staple end at the antimesenteric border. Next a stapler was fired to create the neolumen. The enterotomies were then closed using an additional stapler. The mesenteric defect was also oversewed using 3-0 silk to decrease any risk for internal hernias of the mesentery. Primary anastomosis was made with 60 mm purple Covidien staple loads. The small bowel was once again investigated from the ligament of Treitz to the ileocecal valve proximally and distally confirming that all adhesions including potential internal hernias were addressed. Spillage of enteric content did occur during the case hence the cases was deemed contaminated. The abdomen was copiously irrigated with over 3 L of warm normal saline solution until the aspirant was clear. The abdomen was dried. The reducible reducible umbilical hernia was oversewn using 0 Vicryl. Next, the abdomen was closed using double-stranded 0-PDS proximally and distally. The subcutaneous tissue was also irrigated. Skin was cleansed with dilute solution peroxide. The skin was reapproximated using 3-0 Vicryl. Skin peewee were avoided and placement of PREVENA wound VAC was performed to minimize surgical site infection. At the end of the procedure, the sponge needle and instrument count were verified correct by the solar thermal technician. The patient was transferred to the recovery room in guarded condition. Intraoperative findings were thoroughly discussed with her family. They demonstrated understanding of the care plan and were pleased with the level of care. Contaminated case requiring prolonged antibiotics.
== END 2017-07-03 14:55 | disposition home health service (06) | DRG 327 ==
LOC: EC 08:07 → 3SUR 11:53
PROVIDERS: ADMIT Hospitalist; ATTEND Hospitalist
PROC: 0DS60ZZ Reposition Stomach, Open Approach (ICD-10-PCS; 2017-06-26)
PROC: 0DNW0ZZ Release Peritoneum, Open Approach (ICD-10-PCS; 2017-06-26)
PROC: 0WQF0ZZ Repair Abdominal Wall, Open Approach (ICD-10-PCS; 2017-06-26)
PROC: 0DBB0ZZ Excision of Ileum, Open Approach (ICD-10-PCS; principal; 2017-06-26 17:15)
DX: K56.601 Complete intestinal obstruction, unspecified as to cause (principal); K52.0 Gastroenteritis and colitis due to radiation; N39.0 Urinary tract infection, site not specified; R18.8 Other ascites; M84.48XA Pathological fracture, other site, initial encounter for fracture; I95.9 Hypotension, unspecified; E11.65 Type 2 diabetes mellitus with hyperglycemia; E11.649 Type 2 diabetes mellitus with hypoglycemia without coma; E88.09 Other disorders of plasma-protein metabolism, not elsewhere classified; E86.0 Dehydration; I44.7 Left bundle-branch block, unspecified; G40.901 Epilepsy, unspecified, not intractable, with status epilepticus; I35.0 Nonrheumatic aortic (valve) stenosis; K31.89 Other diseases of stomach and duodenum; K42.9 Umbilical hernia without obstruction or gangrene; K44.9 Diaphragmatic hernia without obstruction or gangrene; K57.90 Diverticulosis of intestine, part unspecified, without perforation or abscess without bleeding; M15.9 Polyosteoarthritis, unspecified; K66.0 Peritoneal adhesions (postprocedural) (postinfection); E03.9 Hypothyroidism, unspecified; K59.00 Constipation, unspecified; Z79.4 Long term (current) use of insulin; Z79.890 Hormone replacement therapy; Z79.899 Other long term (current) drug therapy; Z85.038 Personal history of other malignant neoplasm of large intestine; Z85.828 Personal history of other malignant neoplasm of skin; Z88.1 Allergy status to other antibiotic agents; Z88.2 Allergy status to sulfonamides; Z92.21 Personal history of antineoplastic chemotherapy; Z90.49 Acquired absence of other specified parts of digestive tract; Z98.51 Tubal ligation status; Z82.3 Family history of stroke; Z83.3 Family history of diabetes mellitus; Z80.9 Family history of malignant neoplasm, unspecified; Z82.49 Family history of ischemic heart disease and other diseases of the circulatory system; Y84.2 Radiological procedure and radiotherapy as the cause of abnormal reaction of the patient, or of later complication, without mention of misadventure at the time of the procedure
CPT/HCPCS: 36415; 71046; 74177; 80048; 80053; 81001; 82009; 82150; 82947; 83036; 83690; 83735; 84100; 85025; 85610; 86850; 86900; 86901; 87086; 88307; 94760; 96361; 96374; 99285